=== PATIENT | female | born 1945 | race Caucasian/White ===

== ENCOUNTER 2021-07-18 06:06 | Inpatient (IN) | payer MEDICARE ==
[2021-07-18] VITALS (13 sets, daily range): BP systolic 109–150; BP diastolic 40–65
[~2021-07-18] VITALS: Ht 167.6 cm; Wt 68.5 kg
[~2021-07-18 06:06] MED LIST: ACET325T21 PO; ASPI-630 PO; ATOR80TA72 PO; CARB1TAB22 PO; CHOL500050 PO; DONE10TA7 PO; DONE23TA PO; DOXY100T PO; FLUD0.1T PO; Folic Acid PO; HYDR-2868 PO; HYDROmorphone 2 MG/ML VIAL IVP PRN; IV RINGERS,LACTATED 1000ML 1,000 ML IV SCH; LACT1CAP19 PO; MIDO5TAB4 PO; MORPHINE SULFATE 2 MG/ML INJ. IVP PRN; MULT1TAB92 PO; PARO20TA3 PO; POLY17PO29 PO; PROCHLORPERAZINE 10 MG/2 ML VIAL. IVP PRN; QUET25TA5 PO; RIVA10TA PO; SENN1TAB99 PO; THIA100T22 PO; TORS10TA3 PO; TRAM50TA PO; fentaNYL PF VIAL 100 MCG/2 ML VIAL IVP PRN
[2021-07-18] MEDS ORDERED: PROPOFOL 10 MG/ML (20ML) VIAL. IV ONE (07:00)
[2021-07-18] MEDS ORDERED: LIDOCAINE 1% PF 5 ML VIAL. ONE (07:00)
[2021-07-18] MEDS ORDERED: fentaNYL PF VIAL 100 MCG/2 ML VIAL ONE (07:01)
[2021-07-18] MEDS ORDERED: ONDANSETRON PF 4 MG/2 ML VIAL. ONE (07:01)
[2021-07-18] MEDS ORDERED: DEXAMETHASONE SOD PHOS 4 MG/ML VIAL ONE (07:01)
[2021-07-18] MEDS ORDERED: fentaNYL PF VIAL 100 MCG/2 ML VIAL IVP PRN (07:45)
[2021-07-18] MEDS ORDERED: DEXTROSE 50% 25 GM / 50ML DISP.SYRIN. IV PRN (07:45)
[2021-07-18] MEDS ORDERED: HYDROcodone/APAP 7.5/325MG 1 TAB TABLET PO PRN ×2 (07:45)
[2021-07-18] MEDS ORDERED: MORPHINE SULFATE 2 MG/ML INJ. IVP PRN (07:45)
[2021-07-18] MEDS ORDERED: ONDANSETRON PF 4 MG/2 ML VIAL. IVP PRN (07:45)
[2021-07-18] MEDS ORDERED: POLYETHYLENE GLYCOL 3350 17 GM PACKET. PO PRN (07:45)
[2021-07-18] MEDS ORDERED: GLYCOPYRROLATE 1 MG/5 ML VIAL. ONE (07:59)
[2021-07-18] MEDS: FERROUS SULFATE 325 MG TABLET. PO SCH ×2 (08:00→17:09)
[2021-07-18] MEDS ORDERED: ePHEDrine PF IN SALINE 50 MG/10 ML SYRINGE. IV ONE (08:01)
[2021-07-18] MEDS ORDERED: CLINDAMYCIN 900MG PREMIX 50 ML IV ONE (08:30)
[2021-07-18] MEDS ORDERED: SEVOFLURANE 61 TO 120 MINUTES. IH ONE (08:31)
--- NOTE | 2021-07-18 08:38 | PDOC4 ---
OPERATIVE NOTE: DATE OF PROCEDURE: July 18, 2021 PROCEDURE: Open evacuation seroma with debridement and closure POSTOPERATIVE DIAGNOSIS: Left hip seroma status post hemiarthroplasty SURGEON: Bear Faria DO WELDER FITTER GAS: None EBL: Less than 50 cc SPECIMEN: None ANESTHESIA: General POSITION: Lateral decubitus COMPLICATIONS: None. GROSS FINDINGS: 2 cm skin opening in the area of the incision with seroma type fluid with some hemosiderin staining. Cultures were taken x2 DISPOSITION: To PACU stable. IMPLANT SPECIFICATIONS: None DESCRIPTION OF PROCEDURE: Patient seen in preoperative holding area site is marked consent was verified. Patient was wheeled back the operating room laid supine on the operative table. Department of anesthesia administered general anesthetic and maintain control of the airway. Once adequately anesthetized and the airway protected the patient was positioned in the lateral decubitus position with left hip up. Sterile prep and drape performed in the usual fashion. At this point the area of the previous incision was opened with full-thickness skin flaps. Seroma was encountered and cultured. Blunt probing of the depths of the incision revealed no deep penetration of fluid. Antibiotics were given by department of anesthesia. At this point curetting and copious irrigation will run through the wound aggressively. Any fibrinous tissue was removed sharply. No abscess or purulent material was encountered. After copious irrigation a Hemovac drain was placed. Layered closure was performed using nonbraided suture and the skin was closed with isaiah. Large bulky dressing was applied. Anesthesia was reversed and patient was transferred to postop in apparent stable condition. DISPOSITION: Patient Will be transferred to postop and anticipate discharge when stable. Prognosis: Good BEAR FARIA DO Jul 18, 2021 8:38 am
[2021-07-18] MEDS: SENNOSIDES/DOCUSATE 8.6/50MG TABLET. PO SCH ×2 (09:00→11:00)
[2021-07-18] MEDS: MULTIVITAMIN with MINERAL TABLET. PO SCH ×2 (09:00→11:00)
--- NOTE | 2021-07-18 10:48 | PDOC1 ---
History and Physical Date of Admission Date of Admission DATE: 07/18/21 TIME: 10:46 Identification/Chief Complaint Chief Complaint Hip pain Source Source: Caregiver, Chart review History of Present Illness History of Present Illness Ms Nolasco is 76-year-old female with past medical history dementia, Parkinson's, HTN and recent left hip fracture who presents as an admission for left hip swelling and pain with seroma noted on left hip. She went to OR for I&D 07/18/2021 with operative cultures taken. No deep pocketing noted. She is s/p left hip hemiarthroplasty on 04/29/2021 and was discharged in stable condition for rehabilitation. No complaints of pain. Discussed working with PT. I believe she will require acute rehab again. Past Medical History Cardiovascular: HTN, Syncope CENTRAL NERVOUS SYSTEM: Dementia, Other GI: No pertinent hx Heme/Onc: No pertinent hx Hepatobiliary: No pertinent hx Psych: Anxiety, Depression Musculoskeletal: Osteoarthritis Infectious disease: No pertinent hx Renal/: Urinary Incontinence Past Surgical History Past Surgical History: Total hip replacement (Left 04/29/2021) Family History Family History: Hypertension Social History ALCOHOL: none Drugs: None Current Medications Current Medications Current Medications Fentanyl Citrate (Fentanyl 2ml Vial) 25 mcg PRN Q5MIN PRN IVP MILD PAIN 1-3; Start 07/18/21 at 06:00; Stop 07/18/21 at 20:00 Fentanyl Citrate (Fentanyl 2ml Vial) 50 mcg PRN Q5MIN PRN IVP MODERATE PAIN 4- 6; Start 07/18/21 at 06:00; Stop 07/18/21 at 20:00 Morphine Sulfate (Morphine Sulfate) 1 mg PRN Q10MIN PRN IVP SEVERE PAIN 7-10; Start 07/18/21 at 06:00; Stop 07/18/21 at 20:00 Ringer's Solution 1,000 ml @ 30 mls/hr Q24H IV Last administered on 07/18/21at 06:48; Start 07/18/21 at 06:00; Stop 07/18/21 at 17:59 Hydromorphone HCl (Dilaudid) 0.5 mg PRN Q10MIN PRN IVP SEVERE PAIN 7-10, 2nd CHOICE; Start 07/18/21 at 06:00; Stop 07/18/21 at 20:00 Prochlorperazine Edisylate (Compazine) 5 mg PACU PRN PRN IVP NAUSEA, MRX1; Start 07/18/21 at 06:00; Stop 07/18/21 at 20:00 Propofol (Diprivan) 200 mg STK-MED ONCE IV ; Start 07/18/21 at 07:00; Stop 07/18/21 at 07:00; Status DC Lidocaine HCl (Xylocaine-Mpf 1% 5ml Vial) 5 ml STK-MED ONCE .ROUTE ; Start 07/18/21 at 07:00; Stop 07/18/21 at 07:00; Status DC Fentanyl Citrate (Fentanyl 2ml Vial) 100 mcg STK-MED ONCE .ROUTE ; Start 07/18/21 at 07:01; Stop 07/18/21 at 07:01; Status DC Dexamethasone Sodium Phosphate (Decadron) 4 mg STK-MED ONCE .ROUTE ; Start 07/18/21 at 07:01; Stop 07/18/21 at 07:01; Status DC Ondansetron HCl (Zofran) 4 mg STK-MED ONCE .ROUTE ; Start 07/18/21 at 07:01; Stop 07/18/21 at 07:01; Status DC Morphine Sulfate (Morphine Sulfate) 2 mg PRN Q1HR PRN IVP SEVERE PAIN 7-10, 1ST CHOICE; Start 07/18/21 at 07:45 Fentanyl Citrate (Fentanyl 2ml Vial) 25 mcg PRN Q1HR PRN IVP SEVERE PAIN 7-10; Start 07/18/21 at 07:45 Multivitamins (Thera M Plus) 1 tab DAILY PO ; Start 07/18/21 at 09:00 Senna/Docusate Sodium (Senna Plus) 1 tab DAILY PO ; Start 07/18/21 at 09:00 Polyethylene Glycol (miraLAX PACKET) 17 gm PRN DAILY PRN PO CONSTIPATION; Start 07/18/21 at 07:45 Ferrous Sulfate (Feosol) 325 mg BIDWMEALS PO ; Start 07/18/21 at 08:00 Clindamycin Phosphate 50 ml @ 100 mls/hr Q6H IV ; Start 07/18/21 at 14:00; Stop 07/19/21 at 02:29 Ondansetron HCl (Zofran) 4 mg PRN Q4HRS PRN IVP NAUSEA/VOMITING; Start 07/18/21 at 07:45 Aspirin (Pilar Aspirin) 325 mg DAILYWBKFT PO ; Start 07/19/21 at 08:00 Magnesium Hydroxide (Milk Of Magnesia) 2,400 mg 1X PRN PRN PO CONSTIPATION; Start 07/19/21 at 06:00; Stop 07/20/21 at 05:59 Bisacodyl (Dulcolax Supp) 10 mg 1X PRN PRN MD CONSTIPATION; Start 07/19/21 at 16:00; Stop 07/20/21 at 15:59 Acetaminophen/ Hydrocodone Bitart (Lortab 7.5/325) 1 tab PRN Q4HRS PRN PO PAIN- SEE COMMENTS; Start 07/18/21 at 07:45 Acetaminophen/ Hydrocodone Bitart (Lortab 7.5/325) 2 tab PRN Q4HRS PRN PO PAIN- SEE COMMENTS; Start 07/18/21 at 07:45 Dextrose (Dextrose 50%-Water Syringe) 12.5 gm PRN Q15MIN PRN IV SEE COMMENTS; Start 07/18/21 at 07:45 Glycopyrrolate (Robinul) 1 mg STK-MED ONCE .ROUTE ; Start 07/18/21 at 07:59; Stop 07/18/21 at 07:59; Status DC Ephedrine Sulfate (ePHEDrine PF IN SALINE SYRINGE) 50 mg STK-MED ONCE IV ; Start 07/18/21 at 08:01; Stop 07/18/21 at 08:01; Status DC Clindamycin Phosphate 50 ml @ 100 mls/hr 1X ONCE IV ; Start 07/18/21 at 08:30; Stop 07/18/21 at 08:59; Status DC Sevoflurane (Ultane) 60 ml STK-MED ONCE IH ; Start 07/18/21 at 08:31; Stop 07/18/21 at 08:32; Status DC Active Scripts Active Thera-M Tablet (Multivits,Ca,Minerals/Iron/Fa) 1 Each Tablet 1 Tab PO DAILY 30 Days Tramadol Hcl 50 Mg Tablet 50 Mg PO PRN Q6HRS PRN 7 Days Vitamin B-1 (Thiamine Mononitrate) 100 Mg Tablet 100 Mg PO DAILY 30 Days Acetaminophen 325 Mg Tablet 650 Mg PO PRN Q4HRS PRN 14 Days Reported Miralax (Polyethylene Glycol 3350) 17 Gm Powd.pack 1 Pkt PO DAILY Hydralazine Hcl 25 Mg Tablet 25 Mg PO PRN QID PRN Donepezil Hcl 23 Mg Tablet 20 Mg PO HS Torsemide 10 Mg Tablet 1 Tab PO DAILY 30 Days Senna-Docusate Sodium Tablet (Sennosides/Docusate Sodium) 1 Each Tablet 1 Tab PO DAILY 20 Days Paroxetine Hcl 20 Mg Tablet 1 Tab PO DAILY Midodrine Hcl 5 Mg Tablet 5 Mg PO TID Fludrocortisone Acetate 0.1 Mg Tablet 1 Tab PO DAILY Vitamin D3 (Cholecalciferol (Vitamin D3)) 1,250 Mcg Capsule 2,000 Mcg PO DAILY Aspirin 81 Mg Tab.chew 1 Tab PO DAILY Atorvastatin Calcium 80 Mg Tablet 40 Mg PO QHS Carbidopa-Levodopa 25-100 Tab (Carbidopa/Levodopa) 1 Each Tablet 2 Tab PO TIDWMEALS 30 Days Seroquel (Quetiapine Fumarate) 25 Mg Tablet 25 Mg PO BID Allergies Allergies: Coded Allergies: Penicillins (Verified Allergy, Intermediate, 07/18/21) amoxicillin (Verified Allergy, Intermediate, 07/18/21) clavulanic acid (Verified Allergy, Intermediate, 07/18/21) ROS Review of System Unable to complete due to dementia Physical Exam General: Alert, Cooperative, No acute distress HEENT: Atraumatic, PERRLA, EOMI, Mucous membr. moist/pink Lungs: Clear to auscultation, Normal air movement Heart: S1S2, RRR, no thrills, no rubs, no gallops, no murmurs Abdomen: Normal bowel sounds, Soft, No tenderness, No hepatosplenomegaly, No masses Extremities: No clubbing, No cyanosis, No edema, Normal pulses, Other (left hip and leg swelling) Skin: No rashes, No breakdown, No significant lesion Neuro: Normal speech, Strength at 5/5 X4 ext, Normal tone, Sensation intact, Cranial nerves 3-12 NL, Reflexes 2+ Psych/Mental Status: Mental status NL, Mood NL Vitals Vitals Vital Signs Date Time Temp Pulse Resp B/P (MAP) Pulse Ox O2 Delivery O2 Flow Rate FiO2 07/18/21 09:27 98.1 92 15 125/48 96 Room Air 10 98.1 Simple Mask VTE Prophylaxis Ordered VTE Prophylaxis Devices: Yes VTE Pharmacological Prophylaxi: Yes Assessment/Plan Assessment/Plan A/P: Left hip seroma - s/p operative I&D, will cont clindamycin, f/u cultures H/o Impacted subcapital left femoral neck fracture s/p left hip hemiarthroplasty on 04/29/2021 4 mm left upper lobe nodule - f/u in 3 months Dementia - stable, progressive Parkinson's - cont sinemet HTN - cont home meds Plan: Pain management, although she is currently not complaining of pain Resume home medications Recommend follow-up on 4 mm left upper lobe nodule in 12 months PT/OT FEN - Cardiac diet PPX - Heparin FULL CODE Dispo - inpatient for above Justifications for Admission Other Justification SYNCOPE BEAR MORRISSEY MD Jul 18, 2021 10:48
[2021-07-18] MEDS ORDERED: ACETAMINOPHEN 325 MG TABLET. PO PRN (11:00)
[2021-07-18] MEDS: FLUDROCORTISONE 0.1 MG TABLET PO SCH (11:00)
[2021-07-18] MEDS: POLYETHYLENE GLYCOL 3350 17 GM PACKET. PO SCH (11:00)
[2021-07-18] MEDS ORDERED: traMADol 50 MG TABLET PO PRN (11:00)
[2021-07-18] MEDS: CHOLECALCIFEROL (VITAMIN D3) 1,000 UNIT TABLET PO SCH (11:00)
[2021-07-18] MEDS: QUEtiapine 25 MG TABLET. PO SCH ×2 (11:00→20:50)
[2021-07-18] MEDS: THIAMINE 100 MG TABLET. PO SCH (11:00)
[2021-07-18] MEDS: PARoxetine 20 MG TABLET PO SCH (11:00)
[2021-07-18] MEDS ORDERED: CALC500T31 PO (11:34)
[2021-07-18] MEDS: CARBIDOPA/LEVODOPA 25/100MG TABLET PO SCH ×2 (12:00→17:08)
[2021-07-18] MEDS: ASPIRIN CHEWABLE 81 MG TABLET. PO SCH (12:00)
[2021-07-18] MEDS: CLINDAMYCIN 900MG PREMIX 50 ML IV SCH ×2 (14:05→20:50)
[2021-07-18] MEDS: ATORVASTATIN CALCIUM 40 MG TABLET. PO SCH (20:50)
[2021-07-19] MEDS: CLINDAMYCIN 900MG PREMIX 50 ML IV SCH (02:52)
[2021-07-19 03:08] VITALS: BP 109/39
[2021-07-19] MEDS ORDERED: MAGNESIUM HYDROXIDE 2,400 MG/30 ML ORAL.SUSP. PO PRN (06:00)
[2021-07-19] MEDS: HEPARIN for SUB-Q USE 5,000 UNIT/ML VIAL. SQ SCH ×3 (06:41→22:38)
[2021-07-19 07:00] VITALS: BP 129/59
[2021-07-19] MEDS: ASPIRIN CHEWABLE 81 MG TABLET. PO SCH (07:09)
[2021-07-19] MEDS: SENNOSIDES/DOCUSATE 8.6/50MG TABLET. PO SCH ×2 (07:14→07:54)
[2021-07-19] MEDS: MULTIVITAMIN with MINERAL TABLET. PO SCH ×2 (07:15→07:55)
[2021-07-19] MEDS: CHOLECALCIFEROL (VITAMIN D3) 1,000 UNIT TABLET PO SCH (07:53)
[2021-07-19] MEDS: POLYETHYLENE GLYCOL 3350 17 GM PACKET. PO SCH (07:53)
[2021-07-19] MEDS: FLUDROCORTISONE 0.1 MG TABLET PO SCH (07:54)
[2021-07-19] MEDS: THIAMINE 100 MG TABLET. PO SCH (07:54)
[2021-07-19] MEDS: FERROUS SULFATE 325 MG TABLET. PO SCH ×2 (07:54→17:03)
[2021-07-19] MEDS: ASPIRIN 325 MG TABLET PO SCH (07:54)
[2021-07-19] MEDS: QUEtiapine 25 MG TABLET. PO SCH ×2 (07:54→20:47)
[2021-07-19] MEDS: CARBIDOPA/LEVODOPA 25/100MG TABLET PO SCH ×3 (07:55→17:03)
--- NOTE | 2021-07-19 08:39 | PDOC ---
PROGRESS NOTES Date of Service: DATE: 07/19/21 TIME: 08:38 Chief Complaint Chief Complaint impression Assessment/Plan A/P: Left hip seroma - s/p operative I&D, will cont clindamycin, f/u cultures pod # 1 H/o Impacted subcapital left femoral neck fracture s/p left hip hemiarthroplasty on 04/29/2021 4 mm left upper lobe nodule - f/u in 3 months Dementia - stable, progressive Parkinson's - cont sinemet HTN - cont home meds Plan: Pain management, although she is currently not complaining of pain Resume home medications Recommend follow-up on 4 mm left upper lobe nodule in 12 months PT/OT FEN - Cardiac diet PPX - Heparin FULL CODE Dispo - inpatient for above ID CONSULT Justifications for Admission Justifications for Admission Other Justification SYNCOPE History of Present Illness History of Present Illness History of Present Illness History of Present Illness Ms Nolasco is 76-year-old female with past medical history dementia, Parkinson's, HTN and recent left hip fracture who presents as an admission for left hip swelling and pain with seroma noted on left hip. She went to OR for I&D 07/18/2021 with operative cultures taken. No deep pocketing noted. She is s/p left hip hemiarthroplasty on 04/29/2021 and was discharged in stable condition for rehabilitation. No complaints of pain. Discussed working with PT. I believe she will require acute rehab again. Past Medical History Cardiovascular: HTN, Syncope CENTRAL NERVOUS SYSTEM: Dementia, Other GI: No pertinent hx Heme/Onc: No pertinent hx Hepatobiliary: No pertinent hx Psych: Anxiety, Depression Musculoskeletal: Osteoarthritis Infectious disease: No pertinent hx Renal/: Urinary Incontinence Past Surgical History Past Surgical History: Total hip replacement (Left 04/29/2021) Family History Family History: Hypertension Social History ALCOHOL: none Drugs: None Current Medications Current Medications Current Medications Fentanyl Citrate (Fentanyl 2ml Vial) 25 mcg PRN Q5MIN PRN IVP MILD PAIN 1-3; Start 07/18/21 at 06:00; Stop 07/18/21 at 20:00 Fentanyl Citrate (Fentanyl 2ml Vial) 50 mcg PRN Q5MIN PRN IVP MODERATE PAIN 4- 6; Start 07/18/21 at 06:00; Stop 07/18/21 at 20:00 Morphine Sulfate (Morphine Sulfate) 1 mg PRN Q10MIN PRN IVP SEVERE PAIN 7-10; Start 07/18/21 at 06:00; Stop 07/18/21 at 20:00 Ringer's Solution 1,000 ml @ 30 mls/hr Q24H IV Last administered on 07/18/21at 06:48; Start 07/18/21 at 06:00; Stop 07/18/21 at 17:59 Hydromorphone HCl (Dilaudid) 0.5 mg PRN Q10MIN PRN IVP SEVERE PAIN 7-10, 2nd CHOICE; Start 07/18/21 at 06:00; Stop 07/18/21 at 20:00 Prochlorperazine Edisylate (Compazine) 5 mg PACU PRN PRN IVP NAUSEA, MRX1; Start 07/18/21 at 06:00; Stop 07/18/21 at 20:00 Propofol (Diprivan) 200 mg STK-MED ONCE IV ; Start 07/18/21 at 07:00; Stop 07/18/21 at 07:00; Status DC Lidocaine HCl (Xylocaine-Mpf 1% 5ml Vial) 5 ml STK-MED ONCE .ROUTE ; Start 07/18/21 at 07:00; Stop 07/18/21 at 07:00; Status DC Fentanyl Citrate (Fentanyl 2ml Vial) 100 mcg STK-MED ONCE .ROUTE ; Start 07/18/21 at 07:01; Stop 07/18/21 at 07:01; Status DC Dexamethasone Sodium Phosphate (Decadron) 4 mg STK-MED ONCE .ROUTE ; Start 07/18/21 at 07:01; Stop 07/18/21 at 07:01; Status DC Ondansetron HCl (Zofran) 4 mg STK-MED ONCE .ROUTE ; Start 07/18/21 at 07:01; Stop 07/18/21 at 07:01; Status DC Morphine Sulfate (Morphine Sulfate) 2 mg PRN Q1HR PRN IVP SEVERE PAIN 7-10, 1ST CHOICE; Start 07/18/21 at 07:45 Fentanyl Citrate (Fentanyl 2ml Vial) 25 mcg PRN Q1HR PRN IVP SEVERE PAIN 7-10; Start 07/18/21 at 07:45 Multivitamins (Thera M Plus) 1 tab DAILY PO ; Start 07/18/21 at 09:00 Senna/Docusate Sodium (Senna Plus) 1 tab DAILY PO ; Start 07/18/21 at 09:00 Polyethylene Glycol (miraLAX PACKET) 17 gm PRN DAILY PRN PO CONSTIPATION; Start 07/18/21 at 07:45 Ferrous Sulfate (Feosol) 325 mg BIDWMEALS PO ; Start 07/18/21 at 08:00 Clindamycin Phosphate 50 ml @ 100 mls/hr Q6H IV ; Start 07/18/21 at 14:00; Stop 07/19/21 at 02:29 Ondansetron HCl (Zofran) 4 mg PRN Q4HRS PRN IVP NAUSEA/VOMITING; Start 07/18/21 at 07:45 Aspirin (Pilar Aspirin) 325 mg DAILYWBKFT PO ; Start 07/19/21 at 08:00 Magnesium Hydroxide (Milk Of Magnesia) 2,400 mg 1X PRN PRN PO CONSTIPATION; Start 07/19/21 at 06:00; Stop 07/20/21 at 05:59 Bisacodyl (Dulcolax Supp) 10 mg 1X PRN PRN [place] CONSTIPATION; Start 07/19/21 at 16:00; Stop 07/20/21 at 15:59 Acetaminophen/ Hydrocodone Bitart (Lortab 7.5/325) 1 tab PRN Q4HRS PRN PO PAIN- SEE COMMENTS; Start 07/18/21 at 07:45 Acetaminophen/ Hydrocodone Bitart (Lortab 7.5/325) 2 tab PRN Q4HRS PRN PO PAIN- SEE COMMENTS; Start 07/18/21 at 07:45 Dextrose (Dextrose 50%-Water Syringe) 12.5 gm PRN Q15MIN PRN IV SEE COMMENTS; Start 07/18/21 at 07:45 Glycopyrrolate (Robinul) 1 mg STK-MED ONCE .ROUTE ; Start 07/18/21 at 07:59; Stop 07/18/21 at 07:59; Status DC Ephedrine Sulfate (ePHEDrine PF IN SALINE SYRINGE) 50 mg STK-MED ONCE IV ; Start 07/18/21 at 08:01; Stop 07/18/21 at 08:01; Status DC Clindamycin Phosphate 50 ml @ 100 mls/hr 1X ONCE IV ; Start 07/18/21 at 08:30; Stop 07/18/21 at 08:59; Status DC Sevoflurane (Ultane) 60 ml STK-MED ONCE IH ; Start 07/18/21 at 08:31; Stop 07/18/21 at 08:32; Status DC Active Scripts Active Thera-M Tablet (Multivits,Ca,Minerals/Iron/Fa) 1 Each Tablet 1 Tab PO DAILY 30 Days Tramadol Hcl 50 Mg Tablet 50 Mg PO PRN Q6HRS PRN 7 Days Vitamin B-1 (Thiamine Mononitrate) 100 Mg Tablet 100 Mg PO DAILY 30 Days Acetaminophen 325 Mg Tablet 650 Mg PO PRN Q4HRS PRN 14 Days Reported Miralax (Polyethylene Glycol 3350) 17 Gm Powd.pack 1 Pkt PO DAILY Hydralazine Hcl 25 Mg Tablet 25 Mg PO PRN QID PRN Donepezil Hcl 23 Mg Tablet 20 Mg PO HS Torsemide 10 Mg Tablet 1 Tab PO DAILY 30 Days Senna-Docusate Sodium Tablet (Sennosides/Docusate Sodium) 1 Each Tablet 1 Tab PO DAILY 20 Days Paroxetine Hcl 20 Mg Tablet 1 Tab PO DAILY Midodrine Hcl 5 Mg Tablet 5 Mg PO TID Fludrocortisone Acetate 0.1 Mg Tablet 1 Tab PO DAILY Vitamin D3 (Cholecalciferol (Vitamin D3)) 1,250 Mcg Capsule 2,000 Mcg PO DAILY Aspirin 81 Mg Tab.chew 1 Tab PO DAILY Atorvastatin Calcium 80 Mg Tablet 40 Mg PO QHS Carbidopa-Levodopa 25-100 Tab (Carbidopa/Levodopa) 1 Each Tablet 2 Tab PO TIDWMEALS 30 Days Seroquel (Quetiapine Fumarate) 25 Mg Tablet 25 Mg PO BID Allergies Allergies: Coded Allergies: Penicillins (Verified Allergy, Intermediate, 07/18/21) amoxicillin (Verified Allergy, Intermediate, 07/18/21) clavulanic acid (Verified Allergy, Intermediate, 07/18/21) ROS Review of System Unable to complete due to dementia Vitals Vitals Vital Signs Date Time Temp Pulse Resp B/P (MAP) Pulse Ox O2 Delivery O2 Flow Rate FiO2 07/19/21 07:54 94 Room Air 10.0 07/19/21 07:00 98.0 78 18 129/59 (82) 98.0 Physical Exam General: Alert, Cooperative, No acute distress Lungs: Clear Abdomen: Normal bowel sounds, Soft, No tenderness, No hepatosplenomegaly, No masses Extremities: No clubbing, No cyanosis, No edema, Normal pulses, Other (left hip and leg swelling) Skin: No rashes, No breakdown, No significant lesion Labs LABS DATE OF PROCEDURE: July 18, 2021 PROCEDURE: Open evacuation seroma with debridement and closure POSTOPERATIVE DIAGNOSIS: Left hip seroma status post hemiarthroplasty SURGEON: Haider Faria DO APPLE PICKING SUPERVISOR: None EBL: Less than 50 cc SPECIMEN: None ANESTHESIA: General POSITION: Lateral decubitus COMPLICATIONS: None. GROSS FINDINGS: 2 cm skin opening in the area of the incision with seroma type fluid with some hemosiderin staining. Cultures were taken x2 DISPOSITION: To PACU stable. IMPLANT SPECIFICATIONS: None DESCRIPTION OF PROCEDURE: Patient seen in preoperative holding area site is marked consent was verified. Patient was wheeled back the operating room laid supine on the operative table. Department of anesthesia administered general anesthetic and maintain control of the airway. Once adequately anesthetized and the airway protected the patient was positioned in the lateral decubitus position with left hip up. Sterile prep and drape performed in the usual fashion. At this point the area of the previous incision was opened with full-thickness skin flaps. Seroma was encountered and cultured. Blunt probing of the depths of the incision revealed no deep penetration of fluid. Antibiotics were given by department of anesthesia. At this point curetting and copious irrigation will run through the wound aggressively. Any fibrinous tissue was removed sharply. No abscess or purulent material was encountered. After copious irrigation a Hemovac drain was placed. Layered closure was performed using nonbraided suture and the skin was closed with isaiah. Large bulky dressing was applied. Anesthesia was reversed and patient was transferred to postop in apparent stable condition. DISPOSITION: Patient Will be transferred to postop and anticipate discharge when stable. Prognosis: Good HAIDER FARIA DO Jul 18, 2021 08:38 ESC: CHIRAG STANLEY MD ORDERED: ANAER/AEROB/GS COMMENTS: SEROMA LEFT HIP -------- ---- Procedure Result GRAM STAIN Final Final NO ORGANISMS SEEN. RBC:MANY SQUAMOUS EPI CELL:NONE SEEN PMN (WBCs):NONE SEEN Unless otherwise specified, Testing Performed by: [address] [address] For Inquires, the Physician may contact the Microbiology department at [phone] ANAEROBIC-AEROBIC CULTURE Preliminary Preliminary RARE GRAM NEGATIVE RODS on 07/19/21 at 0853 FINAL ID= [ESCHERICHIA COLI] ESCHERICHIA COLI Unless otherwise specified, Testing Performed by: [address] [address] For Inquires, the Physician may contact the Microbiology department at [phone] Comment Review of Relevant I have reviewed the following items brian (where applicable) has been applied. Medications Current Medications Fentanyl Citrate (Fentanyl 2ml Vial) 25 mcg PRN Q5MIN PRN IVP MILD PAIN 1-3; Start 07/18/21 at 06:00; Stop 07/18/21 at 20:00; Status DC Fentanyl Citrate (Fentanyl 2ml Vial) 50 mcg PRN Q5MIN PRN IVP MODERATE PAIN 4- 6; Start 07/18/21 at 06:00; Stop 07/18/21 at 20:00; Status DC Morphine Sulfate (Morphine Sulfate) 1 mg PRN Q10MIN PRN IVP SEVERE PAIN 7-10; Start 07/18/21 at 06:00; Stop 07/18/21 at 20:00; Status DC Ringer's Solution 1,000 ml @ 30 mls/hr Q24H IV Last administered on 07/18/21at 06:48; Start 07/18/21 at 06:00; Stop 07/18/21 at 17:59; Status DC Hydromorphone HCl (Dilaudid) 0.5 mg PRN Q10MIN PRN IVP SEVERE PAIN 7-10, 2nd CHOICE; Start 07/18/21 at 06:00; Stop 07/18/21 at 20:00; Status DC Prochlorperazine Edisylate (Compazine) 5 mg PACU PRN PRN IVP NAUSEA, MRX1; Start 07/18/21 at 06:00; Stop 07/18/21 at 20:00; Status DC Propofol (Diprivan) 200 mg STK-MED ONCE IV ; Start 07/18/21 at 07:00; Stop 07/18/21 at 07:00; Status DC Lidocaine HCl (Xylocaine-Mpf 1% 5ml Vial) 5 ml STK-MED ONCE .ROUTE ; Start 07/18/21 at 07:00; Stop 07/18/21 at 07:00; Status DC Fentanyl Citrate (Fentanyl 2ml Vial) 100 mcg STK-MED ONCE .ROUTE ; Start 07/18/21 at 07:01; Stop 07/18/21 at 07:01; Status DC Dexamethasone Sodium Phosphate (Decadron) 4 mg STK-MED ONCE .ROUTE ; Start 07/18/21 at 07:01; Stop 07/18/21 at 07:01; Status DC Ondansetron HCl (Zofran) 4 mg STK-MED ONCE .ROUTE ; Start 07/18/21 at 07:01; Stop 07/18/21 at 07:01; Status DC Morphine Sulfate (Morphine Sulfate) 2 mg PRN Q1HR PRN IVP SEVERE PAIN 7-10, 1ST CHOICE; Start 07/18/21 at 07:45 Fentanyl Citrate (Fentanyl 2ml Vial) 25 mcg PRN Q1HR PRN IVP SEVERE PAIN 7-10; Start 07/18/21 at 07:45 Multivitamins (Thera M Plus) 1 tab DAILY PO Last administered on 07/19/21at 07:55; Start 07/18/21 at 09:00 Senna/Docusate Sodium (Senna Plus) 1 tab DAILY PO Last administered on 07/19/21at 07:54; Start 07/18/21 at 09:00 Polyethylene Glycol (miraLAX PACKET) 17 gm PRN DAILY PRN PO CONSTIPATION; Start 07/18/21 at 07:45 Ferrous Sulfate (Feosol) 325 mg BIDWMEALS PO Last administered on 07/19/21at 07:54; Start 07/18/21 at 08:00 Clindamycin Phosphate 50 ml @ 100 mls/hr Q6H IV Last administered on 07/19/21at 02:52; Start 07/18/21 at 14:00; Stop 07/19/21 at 02:29; Status DC Ondansetron HCl (Zofran) 4 mg PRN Q4HRS PRN IVP NAUSEA/VOMITING; Start 07/18/21 at 07:45 Aspirin (Pilar Aspirin) 325 mg DAILYWBKFT PO Last administered on 07/19/21at 07:54; Start 07/19/21 at 08:00 Magnesium Hydroxide (Milk Of Magnesia) 2,400 mg 1X PRN PRN PO CONSTIPATION; Start 07/19/21 at 06:00; Stop 07/20/21 at 05:59 Bisacodyl (Dulcolax Supp) 10 mg 1X PRN PRN [place] CONSTIPATION; Start 07/19/21 at 16:00; Stop 07/20/21 at 15:59 Acetaminophen/ Hydrocodone Bitart (Lortab 7.5/325) 1 tab PRN Q4HRS PRN PO PAIN- SEE COMMENTS; Start 07/18/21 at 07:45 Acetaminophen/ Hydrocodone Bitart (Lortab 7.5/325) 2 tab PRN Q4HRS PRN PO PAIN- SEE COMMENTS; Start 07/18/21 at 07:45 Dextrose (Dextrose 50%-Water Syringe) 12.5 gm PRN Q15MIN PRN IV SEE COMMENTS; Start 07/18/21 at 07:45 Glycopyrrolate (Robinul) 1 mg STK-MED ONCE .ROUTE ; Start 07/18/21 at 07:59; Stop 07/18/21 at 07:59; Status DC Ephedrine Sulfate (ePHEDrine PF IN SALINE SYRINGE) 50 mg STK-MED ONCE IV ; Start 07/18/21 at 08:01; Stop 07/18/21 at 08:01; Status DC Clindamycin Phosphate 50 ml @ 100 mls/hr 1X ONCE IV ; Start 07/18/21 at 08:30; Stop 07/18/21 at 08:59; Status DC Sevoflurane (Ultane) 60 ml STK-MED ONCE IH ; Start 07/18/21 at 08:31; Stop 07/18/21 at 08:32; Status DC Acetaminophen (Tylenol) 650 mg PRN Q4HRS PRN PO TEMP OVER 100.4F OR MILD PAIN; Start 07/18/21 at 11:00 Aspirin (Aspirin Chewable) 81 mg DAILY PO ; Start 07/18/21 at 12:00; Stop 07/19/21 at 07:22; Status DC Carbidopa/Levodopa (Sinemet 25/100) 2 tab TIDWMEALS PO Last administered on 07/19/21at 07:55; Start 07/18/21 at 12:00 Fludrocortisone Acetate (Florinef) 0.1 mg DAILY PO Last administered on 07/19/21at 07:54; Start 07/18/21 at 11:00 Multivitamins (Thera M Plus) 1 tab DAILY PO ; Start 07/18/21 at 11:00; Stop 07/19/21 at 07:22; Status DC Paroxetine HCl (Paxil) 20 mg DAILY PO ; Start 07/18/21 at 11:00 Polyethylene Glycol (miraLAX PACKET) 17 gm DAILY PO Last administered on 07/19/21at 07:53; Start 07/18/21 at 11:00 Quetiapine Fumarate (SEROquel) 25 mg BID PO Last administered on 07/19/21at 07:54; Start 07/18/21 at 11:00 Senna/Docusate Sodium (Senna Plus) 1 tab DAILY PO ; Start 07/18/21 at 11:00; Stop 07/19/21 at 07:22; Status DC Thiamine Mononitrate (Vitamin B-1) 100 mg DAILY PO Last administered on 07/19/21at 07:54; Start 07/18/21 at 11:00 Tramadol HCl (Ultram) 50 mg PRN Q6HRS PRN PO MILD PAIN 1-3 Last administered on 07/19/21at 07:54; Start 07/18/21 at 11:00 Atorvastatin Calcium (Lipitor) 40 mg QHS PO Last administered on 07/18/21at 20:50; Start 07/18/21 at 21:00 Vitamin D (Vitamin D3) 2,000 unit DAILY PO Last administered on 07/19/21at 07:53; Start 07/18/21 at 11:00 Clindamycin HCl (Cleocin) 300 mg TID PO ; Start 07/19/21 at 09:00 Heparin Sodium (Porcine) (Heparin Sodium) 5,000 unit Q8HRS SQ Last administered on 07/19/21at 06:41; Start 07/19/21 at 06:15 Active Scripts Active Thera-M Tablet (Multivits,Ca,Minerals/Iron/Fa) 1 Each Tablet 1 Tab PO DAILY 30 Days Tramadol Hcl 50 Mg Tablet 50 Mg PO PRN Q6HRS PRN 7 Days Acetaminophen 325 Mg Tablet 650 Mg PO PRN Q4HRS PRN 14 Days Reported Calcium Carbonate 500 Mg Tablet 1 Tab PO PRN DAILY 30 Days Miralax (Polyethylene Glycol 3350) 17 Gm Powd.pack 1 Pkt PO DAILY Hydralazine Hcl 25 Mg Tablet 25 Mg PO PRN QID PRN Donepezil Hcl 23 Mg Tablet 20 Mg PO HS Torsemide 10 Mg Tablet 1 Tab PO DAILY 30 Days Senna-Docusate Sodium Tablet (Sennosides/Docusate Sodium) 1 Each Tablet 1 Tab PO DAILY 20 Days Paroxetine Hcl 20 Mg Tablet 1 Tab PO DAILY Midodrine Hcl 5 Mg Tablet 5 Mg PO TID Fludrocortisone Acetate 0.1 Mg Tablet 1 Tab PO DAILY Vitamin D3 (Cholecalciferol (Vitamin D3)) 1,250 Mcg Capsule 2,000 Mcg PO DAILY Aspirin 81 Mg Tab.chew 1 Tab PO DAILY Atorvastatin Calcium 80 Mg Tablet 40 Mg PO QHS Carbidopa-Levodopa 25-100 Tab (Carbidopa/Levodopa) 1 Each Tablet 2 Tab PO TIDWMEALS 30 Days Seroquel (Quetiapine Fumarate) 25 Mg Tablet 25 Mg PO BID Vitals/I & O Vital Sign - Last 24 Hours 07/18/21 07/18/21 07/18/21 07/18/21 08:42 08:42 08:57 09:12 Temp 98.1 98.1 98.1 98.1 98.1 98.1 Pulse 95 95 94 Resp 15 15 15 B/P (MAP) 130/53 123/40 125/45 Pulse Ox 100 96 96 O2 Delivery Room Air Room Air Room Air Room Air Simple Mask Simple Mask Simple Mask O2 Flow Rate 10 10 10 07/18/21 07/18/21 07/18/21 07/18/21 09:27 09:40 09:55 10:10 Temp 98.1 98.1 Pulse 92 98 90 87 Resp 15 18 18 18 B/P (MAP) 125/48 136/61 (86) 132/61 (84) 128/55 (79) Pulse Ox 96 93 93 93 O2 Delivery Room Air Room Air Room Air Room Air Simple Mask O2 Flow Rate 10 07/18/21 07/18/21 07/18/21 07/18/21 10:25 10:40 11:10 11:40 Pulse 86 84 81 80 Resp 18 18 18 18 B/P (MAP) 126/46 (72) 135/57 (83) 125/52 (76) 127/51 (76) Pulse Ox 92 93 93 93 O2 Delivery Room Air Room Air Room Air Room Air 07/18/21 07/18/21 07/18/21 07/18/21 12:40 13:40 13:50 15:00 Temp 98.0 98.0 Pulse 80 81 87 Resp 18 18 18 B/P (MAP) 124/49 (74) 123/48 (73) 139/52 (81) Pulse Ox 93 93 93 O2 Delivery Room Air Room Air Room Air Room Air 07/18/21 07/18/21 07/18/21 07/19/21 19:20 20:00 23:12 03:08 Temp 97.4 97.6 98.2 97.4 97.6 98.2 Pulse 81 75 71 Resp 20 18 18 B/P (MAP) 150/52 (84) 109/40 (63) 109/39 (62) Pulse Ox 94 92 94 O2 Delivery Room Air Room Air Room Air Room Air 07/19/21 07/19/21 07:00 07:54 Temp 98.0 98.0 Pulse 78 Resp 18 B/P (MAP) 129/59 (82) Pulse Ox 93 94 O2 Delivery Room Air Room Air O2 Flow Rate 10.0 l Intake and Output 07/18/21 07/18/21 07/19/21 15:00 23:00 07:00 Intake Total 850 ml 220 ml 200 ml Balance 850 ml 220 ml 200 ml Justicifation of Admission Dx: Justifications for Admission: Justification of Admission Dx: Yes CHF: Cardiac Arrhythmias KATHY TRAN MD Jul 19, 2021 08:39
[2021-07-19 09:20] LABS: HEMATOCRIT 30.2 % (36.0-47.0)
[2021-07-19] MEDS: PARoxetine 20 MG TABLET PO SCH (09:51)
[2021-07-19] MEDS: CLINDAMYCIN HCL 150 MG CAPSULE. PO SCH ×3 (09:51→20:47)
[2021-07-19 09:52] LABS: ALBUMIN 1.9 g/dL (3.4-5.0); ALBUMIN/GLOBULIN RATIO 0.5 (1.0-1.7); CALCIUM 7.9 mg/dL (8.5-10.1); GFR 53.6; POTASSIUM 3.2 mmol/L (3.5-5.1); TOTAL BILIRUBIN 0.2 mg/dL (0.2-1.0); TOTAL PROTEIN 5.4 g/dL (6.4-8.2)
[2021-07-19 11:00] VITALS: BP 103/37
[2021-07-19] MEDS ORDERED: POTASSIUM CHLORIDE 20 MEQ TABLET.ER. PO ONE (11:15)
[2021-07-19] MEDS: LACTOBACILLUS RHAMNOSUS GG 1 CAPSULE. PO SCH ×2 (12:09→20:48)
[2021-07-19 15:00] VITALS: BP 100/39
[2021-07-19] MEDS ORDERED: BISACODYL 10 MG SUPP.RECT. PR PRN (16:00)
[2021-07-19 19:00] VITALS: BP 106/33
--- NOTE | 2021-07-19 19:29 | PDOC ---
Provider Note Date of Service: DATE: 07/19/21 TIME: 19:29 Provider Note DATE: 07/19/21 Patient seen in postoperative evaluation. She is doing fairly well. Dressing is clean dry and intact. Vital signs are stable patient is afebrile. Left hip dressing is clean dry and intact. Neurocirculatory status is intact. ASSESSMENT & PLAN: Status post left hip incision and evacuation of seroma outside the joint space Cultures revealed findings concerning for secondary E. coli infection in the soft tissues. Infectious disease consultation is pending. We will await their input to help determine patient's disposition. Justifications for Admission Other Justification SYNCOPE BEAR BRAY DO Jul 19, 2021 7:29 pm
[2021-07-19] MEDS: ATORVASTATIN CALCIUM 40 MG TABLET. PO SCH (20:47)
[2021-07-19 23:00] VITALS: BP 115/43
[2021-07-20 03:00] VITALS: BP 132/52
[2021-07-20] MEDS: HEPARIN for SUB-Q USE 5,000 UNIT/ML VIAL. SQ SCH ×3 (06:35→22:48)
[2021-07-20 07:35] LABS: BASO % 1 % (0-3); EOS # 0.2 x10^3/uL (0.0-0.7); EOS % 3 % (0-3); HEMATOCRIT 30.9 % (36.0-47.0); HEMOGLOBIN 10.1 g/dL (12.0-15.5); LYMPH # 1.7 x10^3/uL (1.0-4.8); LYMPH % 22 % (24-48); MEAN CORPUSCULAR HEMOGLOBIN 30 pg (25-35); MEAN CORPUSCULAR HGB CONC 33 g/dL (31-37); MEAN CORPUSCULAR VOLUME 92 fL (79-100); MONO # 0.6 x10^3/uL (0.0-1.1); MONO % 8 % (0-9); NEUT % 66 % (31-73); PLATELET COUNT 390 x10^3/uL (140-400); RED BLOOD COUNT 3.36 x10^6/uL (3.50-5.40); RED CELL DISTRIBUTION WIDTH 14.7 % (11.5-14.5); WHITE BLOOD COUNT 7.6 x10^3/uL (4.0-11.0)
[2021-07-20 07:44] LABS: CALCIUM 7.7 mg/dL (8.5-10.1); CREATININE 0.9 mg/dL (0.6-1.0); GFR 60.6; POTASSIUM 3.4 mmol/L (3.5-5.1)
[2021-07-20 07:45] VITALS: BP 153/59
[2021-07-20] MEDS: MULTIVITAMIN with MINERAL TABLET. PO SCH (08:33)
[2021-07-20] MEDS: POLYETHYLENE GLYCOL 3350 17 GM PACKET. PO SCH (08:33)
[2021-07-20] MEDS: THIAMINE 100 MG TABLET. PO SCH (08:33)
[2021-07-20] MEDS: LACTOBACILLUS RHAMNOSUS GG 1 CAPSULE. PO SCH ×2 (08:33→20:20)
[2021-07-20] MEDS: CLINDAMYCIN HCL 150 MG CAPSULE. PO SCH ×2 (08:33→13:57)
[2021-07-20] MEDS: SENNOSIDES/DOCUSATE 8.6/50MG TABLET. PO SCH (08:34)
[2021-07-20] MEDS: FERROUS SULFATE 325 MG TABLET. PO SCH ×2 (08:34→16:50)
[2021-07-20] MEDS: CHOLECALCIFEROL (VITAMIN D3) 1,000 UNIT TABLET PO SCH (08:34)
[2021-07-20] MEDS: QUEtiapine 25 MG TABLET. PO SCH ×2 (08:34→20:19)
[2021-07-20] MEDS: ASPIRIN 325 MG TABLET PO SCH (08:34)
[2021-07-20] MEDS: CARBIDOPA/LEVODOPA 25/100MG TABLET PO SCH ×3 (08:34→16:50)
[2021-07-20] MEDS: POTASSIUM CHLORIDE 20 MEQ TABLET.ER. PO SCH (08:34)
[2021-07-20] MEDS: PARoxetine 20 MG TABLET PO SCH (08:34)
[2021-07-20] MEDS: FLUDROCORTISONE 0.1 MG TABLET PO SCH (08:34)
--- NOTE | 2021-07-20 10:03 | PDOC ---
PROGRESS NOTES Date of Service: DATE: 07/20/21 TIME: 10:03 Chief Complaint Chief Complaint impression Assessment/Plan A/P: Left hip seroma - s/p operative I&D, will cont clindamycin, f/u cultures pod # 1 H/o Impacted subcapital left femoral neck fracture s/p left hip hemiarthroplasty on 04/29/2021 4 mm left upper lobe nodule - f/u in 3 months Dementia - stable, progressive Parkinson's - cont sinemet HTN - cont home meds Plan: Pain management, although she is currently not complaining of pain Resume home medications Recommend follow-up on 4 mm left upper lobe nodule in 12 months PT/OT FEN - Cardiac diet PPX - Heparin FULL CODE Dispo - inpatient for above ID CONSULT 07-20 Cultures revealed findings concerning for secondary E. coli infection in the soft tissues.on iv rocephin D/W RN Justifications for Admission Justifications for Admission Other Justification SYNCOPE History of Present Illness History of Present Illness History of Present Illness History of Present Illness Ms Nolasco is 76-year-old female with past medical history dementia, Parkinson's, HTN and recent left hip fracture who presents as an admission for left hip swelling and pain with seroma noted on left hip. She went to OR for I&D 07/18/2021 with operative cultures taken. No deep pocketing noted. She is s/p left hip hemiarthroplasty on 04/29/2021 and was discharged in stable condition for rehabilitation. No complaints of pain. Discussed working with PT. I believe she will require acute rehab again. Past Medical History Cardiovascular: HTN, Syncope CENTRAL NERVOUS SYSTEM: Dementia, Other GI: No pertinent hx Heme/Onc: No pertinent hx Hepatobiliary: No pertinent hx Psych: Anxiety, Depression Musculoskeletal: Osteoarthritis Infectious disease: No pertinent hx Renal/: Urinary Incontinence Past Surgical History Past Surgical History: Total hip replacement (Left 04/29/2021) Family History Family History: Hypertension Social History ALCOHOL: none Drugs: None Current Medications Current Medications Current Medications Fentanyl Citrate (Fentanyl 2ml Vial) 25 mcg PRN Q5MIN PRN IVP MILD PAIN 1-3; Start 07/18/21 at 06:00; Stop 07/18/21 at 20:00 Fentanyl Citrate (Fentanyl 2ml Vial) 50 mcg PRN Q5MIN PRN IVP MODERATE PAIN 4- 6; Start 07/18/21 at 06:00; Stop 07/18/21 at 20:00 Morphine Sulfate (Morphine Sulfate) 1 mg PRN Q10MIN PRN IVP SEVERE PAIN 7-10; Start 07/18/21 at 06:00; Stop 07/18/21 at 20:00 Ringer's Solution 1,000 ml @ 30 mls/hr Q24H IV Last administered on 07/18/21at 06:48; Start 07/18/21 at 06:00; Stop 07/18/21 at 17:59 Hydromorphone HCl (Dilaudid) 0.5 mg PRN Q10MIN PRN IVP SEVERE PAIN 7-10, 2nd CHOICE; Start 07/18/21 at 06:00; Stop 07/18/21 at 20:00 Prochlorperazine Edisylate (Compazine) 5 mg PACU PRN PRN IVP NAUSEA, MRX1; Start 07/18/21 at 06:00; Stop 07/18/21 at 20:00 Propofol (Diprivan) 200 mg STK-MED ONCE IV ; Start 07/18/21 at 07:00; Stop 07/18/21 at 07:00; Status DC Lidocaine HCl (Xylocaine-Mpf 1% 5ml Vial) 5 ml STK-MED ONCE .ROUTE ; Start 07/18/21 at 07:00; Stop 07/18/21 at 07:00; Status DC Fentanyl Citrate (Fentanyl 2ml Vial) 100 mcg STK-MED ONCE .ROUTE ; Start 07/18/21 at 07:01; Stop 07/18/21 at 07:01; Status DC Dexamethasone Sodium Phosphate (Decadron) 4 mg STK-MED ONCE .ROUTE ; Start 07/18/21 at 07:01; Stop 07/18/21 at 07:01; Status DC Ondansetron HCl (Zofran) 4 mg STK-MED ONCE .ROUTE ; Start 07/18/21 at 07:01; Stop 07/18/21 at 07:01; Status DC Morphine Sulfate (Morphine Sulfate) 2 mg PRN Q1HR PRN IVP SEVERE PAIN 7-10, 1ST CHOICE; Start 07/18/21 at 07:45 Fentanyl Citrate (Fentanyl 2ml Vial) 25 mcg PRN Q1HR PRN IVP SEVERE PAIN 7-10; Start 07/18/21 at 07:45 Multivitamins (Thera M Plus) 1 tab DAILY PO ; Start 07/18/21 at 09:00 Senna/Docusate Sodium (Senna Plus) 1 tab DAILY PO ; Start 07/18/21 at 09:00 Polyethylene Glycol (miraLAX PACKET) 17 gm PRN DAILY PRN PO CONSTIPATION; Start 07/18/21 at 07:45 Ferrous Sulfate (Feosol) 325 mg BIDWMEALS PO ; Start 07/18/21 at 08:00 Clindamycin Phosphate 50 ml @ 100 mls/hr Q6H IV ; Start 07/18/21 at 14:00; Stop 07/19/21 at 02:29 Ondansetron HCl (Zofran) 4 mg PRN Q4HRS PRN IVP NAUSEA/VOMITING; Start 07/18/21 at 07:45 Aspirin (Pilar Aspirin) 325 mg DAILYWBKFT PO ; Start 07/19/21 at 08:00 Magnesium Hydroxide (Milk Of Magnesia) 2,400 mg 1X PRN PRN PO CONSTIPATION; Start 07/19/21 at 06:00; Stop 07/20/21 at 05:59 Bisacodyl (Dulcolax Supp) 10 mg 1X PRN PRN [place] CONSTIPATION; Start 07/19/21 at 16:00; Stop 07/20/21 at 15:59 Acetaminophen/ Hydrocodone Bitart (Lortab 7.5/325) 1 tab PRN Q4HRS PRN PO PAIN- SEE COMMENTS; Start 07/18/21 at 07:45 Acetaminophen/ Hydrocodone Bitart (Lortab 7.5/325) 2 tab PRN Q4HRS PRN PO PAIN- SEE COMMENTS; Start 07/18/21 at 07:45 Dextrose (Dextrose 50%-Water Syringe) 12.5 gm PRN Q15MIN PRN IV SEE COMMENTS; Start 07/18/21 at 07:45 Glycopyrrolate (Robinul) 1 mg STK-MED ONCE .ROUTE ; Start 07/18/21 at 07:59; Stop 07/18/21 at 07:59; Status DC Ephedrine Sulfate (ePHEDrine PF IN SALINE SYRINGE) 50 mg STK-MED ONCE IV ; Start 07/18/21 at 08:01; Stop 07/18/21 at 08:01; Status DC Clindamycin Phosphate 50 ml @ 100 mls/hr 1X ONCE IV ; Start 07/18/21 at 08:30; Stop 07/18/21 at 08:59; Status DC Sevoflurane (Ultane) 60 ml STK-MED ONCE IH ; Start 07/18/21 at 08:31; Stop 07/18/21 at 08:32; Status DC Active Scripts Active Thera-M Tablet (Multivits,Ca,Minerals/Iron/Fa) 1 Each Tablet 1 Tab PO DAILY 30 Days Tramadol Hcl 50 Mg Tablet 50 Mg PO PRN Q6HRS PRN 7 Days Vitamin B-1 (Thiamine Mononitrate) 100 Mg Tablet 100 Mg PO DAILY 30 Days Acetaminophen 325 Mg Tablet 650 Mg PO PRN Q4HRS PRN 14 Days Reported Miralax (Polyethylene Glycol 3350) 17 Gm Powd.pack 1 Pkt PO DAILY Hydralazine Hcl 25 Mg Tablet 25 Mg PO PRN QID PRN Donepezil Hcl 23 Mg Tablet 20 Mg PO HS Torsemide 10 Mg Tablet 1 Tab PO DAILY 30 Days Senna-Docusate Sodium Tablet (Sennosides/Docusate Sodium) 1 Each Tablet 1 Tab PO DAILY 20 Days Paroxetine Hcl 20 Mg Tablet 1 Tab PO DAILY Midodrine Hcl 5 Mg Tablet 5 Mg PO TID Fludrocortisone Acetate 0.1 Mg Tablet 1 Tab PO DAILY Vitamin D3 (Cholecalciferol (Vitamin D3)) 1,250 Mcg Capsule 2,000 Mcg PO DAILY Aspirin 81 Mg Tab.chew 1 Tab PO DAILY Atorvastatin Calcium 80 Mg Tablet 40 Mg PO QHS Carbidopa-Levodopa 25-100 Tab (Carbidopa/Levodopa) 1 Each Tablet 2 Tab PO TIDWMEALS 30 Days Seroquel (Quetiapine Fumarate) 25 Mg Tablet 25 Mg PO BID Allergies Allergies: Coded Allergies: Penicillins (Verified Allergy, Intermediate, 07/18/21) amoxicillin (Verified Allergy, Intermediate, 07/18/21) clavulanic acid (Verified Allergy, Intermediate, 07/18/21) ROS Review of System Unable to complete due to dementia Vitals Vitals Vital Signs Date Time Temp Pulse Resp B/P (MAP) Pulse Ox O2 Delivery O2 Flow Rate FiO2 07/20/21 08:00 Room Air 10.0 07/20/21 07:45 98.4 60 18 153/59 (90) 90 98.4 Physical Exam General: Alert, Cooperative, No acute distress Lungs: Clear Abdomen: Normal bowel sounds, Soft, No tenderness, No hepatosplenomegaly, No m asses Extremities: No clubbing, No cyanosis, No edema, Normal pulses, Other (left hip and leg swelling) Skin: No rashes, No breakdown, No significant lesion Labs LABS Laboratory Tests Test 07/19/21 12:05 07/20/21 07:14 Lactic Acid Level 1.4 mmol/L (0.4-2.0) White Blood Count 7.6 x10^3/uL (4.0-11.0) Red Blood Count 3.36 x10^6/uL (3.50-5.40) Hemoglobin 10.1 g/dL (12.0-15.5) Hematocrit 30.9 % (36.0-47.0) Mean Corpuscular Volume 92 fL (79-100) Mean Corpuscular Hemoglobin 30 pg (25-35) Mean Corpuscular Hemoglobin Concent 33 g/dL (31-37) Red Cell Distribution Width 14.7 % (11.5-14.5) Platelet Count 390 x10^3/uL (140-400) Neutrophils (%) (Auto) 66 % (31-73) Lymphocytes (%) (Auto) 22 % (24-48) Monocytes (%) (Auto) 8 % (0-9) Eosinophils (%) (Auto) 3 % (0-3) Basophils (%) (Auto) 1 % (0-3) Neutrophils # (Auto) 5.0 x10^3/uL (1.8-7.7) Lymphocytes # (Auto) 1.7 x10^3/uL (1.0-4.8) Monocytes # (Auto) 0.6 x10^3/uL (0.0-1.1) Eosinophils # (Auto) 0.2 x10^3/uL (0.0-0.7) Basophils # (Auto) 0.0 x10^3/uL (0.0-0.2) Sodium Level 140 mmol/L (136-145) Potassium Level 3.4 mmol/L (3.5-5.1) Chloride Level 104 mmol/L (98-107) Carbon Dioxide Level 34 mmol/L (21-32) Anion Gap 2 (6-14) Blood Urea Nitrogen 12 mg/dL (7-20) Creatinine 0.9 mg/dL (0.6-1.0) Estimated GFR (Cockcroft-Gault) 60.6 Glucose Level 77 mg/dL (70-99) Calcium Level 7.7 mg/dL (8.5-10.1) Comment Review of Relevant I have reviewed the following items brian (where applicable) has been applied. Labs Laboratory Tests Test 07/19/21 06:45 07/19/21 12:05 07/20/21 07:14 Hemoglobin 10.0 g/dL (12.0-15.5) 10.1 g/dL (12.0-15.5) Hematocrit 30.2 % (36.0-47.0) 30.9 % (36.0-47.0) Mean Corpuscular Hemoglobin Concent 33 g/dL (31-37) 33 g/dL (31-37) Sodium Level 137 mmol/L (136-145) 140 mmol/L (136-145) Potassium Level 3.2 mmol/L (3.5-5.1) 3.4 mmol/L (3.5-5.1) Chloride Level 100 mmol/L (98-107) 104 mmol/L (98-107) Carbon Dioxide Level 33 mmol/L (21-32) 34 mmol/L (21-32) Anion Gap 4 (6-14) 2 (6-14) Blood Urea Nitrogen 12 mg/dL (7-20) 12 mg/dL (7-20) Creatinine 1.0 mg/dL (0.6-1.0) 0.9 mg/dL (0.6-1.0) Estimated GFR (Cockcroft-Gault) 53.6 60.6 BUN/Creatinine Ratio 12 (6-20) Glucose Level 74 mg/dL (70-99) 77 mg/dL (70-99) Calcium Level 7.9 mg/dL (8.5-10.1) 7.7 mg/dL (8.5-10.1) Total Bilirubin 0.2 mg/dL (0.2-1.0) Aspartate Amino Transf (AST/SGOT) 36 U/L (15-37) Alanine Aminotransferase (ALT/SGPT) 16 U/L (14-59) Alkaline Phosphatase 133 U/L (46-116) C-Reactive Protein, Quantitative 8.4 mg/L (0-3.3) Total Protein 5.4 g/dL (6.4-8.2) Albumin 1.9 g/dL (3.4-5.0) Albumin/Globulin Ratio 0.5 (1.0-1.7) Procalcitonin < 0.10 ng/mL (0.00-0.10) Lactic Acid Level 1.4 mmol/L (0.4-2.0) White Blood Count 7.6 x10^3/uL (4.0-11.0) Red Blood Count 3.36 x10^6/uL (3.50-5.40) Mean Corpuscular Volume 92 fL (79-100) Mean Corpuscular Hemoglobin 30 pg (25-35) Red Cell Distribution Width 14.7 % (11.5-14.5) Platelet Count 390 x10^3/uL (140-400) Neutrophils (%) (Auto) 66 % (31-73) Lymphocytes (%) (Auto) 22 % (24-48) Monocytes (%) (Auto) 8 % (0-9) Eosinophils (%) (Auto) 3 % (0-3) Basophils (%) (Auto) 1 % (0-3) Neutrophils # (Auto) 5.0 x10^3/uL (1.8-7.7) Lymphocytes # (Auto) 1.7 x10^3/uL (1.0-4.8) Monocytes # (Auto) 0.6 x10^3/uL (0.0-1.1) Eosinophils # (Auto) 0.2 x10^3/uL (0.0-0.7) Basophils # (Auto) 0.0 x10^3/uL (0.0-0.2) Laboratory Tests Test 07/19/21 12:05 07/20/21 07:14 Lactic Acid Level 1.4 mmol/L (0.4-2.0) White Blood Count 7.6 x10^3/uL (4.0-11.0) Red Blood Count 3.36 x10^6/uL (3.50-5.40) Hemoglobin 10.1 g/dL (12.0-15.5) Hematocrit 30.9 % (36.0-47.0) Mean Corpuscular Volume 92 fL (79-100) Mean Corpuscular Hemoglobin 30 pg (25-35) Mean Corpuscular Hemoglobin Concent 33 g/dL (31-37) Red Cell Distribution Width 14.7 % (11.5-14.5) Platelet Count 390 x10^3/uL (140-400) Neutrophils (%) (Auto) 66 % (31-73) Lymphocytes (%) (Auto) 22 % (24-48) Monocytes (%) (Auto) 8 % (0-9) Eosinophils (%) (Auto) 3 % (0-3) Basophils (%) (Auto) 1 % (0-3) Neutrophils # (Auto) 5.0 x10^3/uL (1.8-7.7) Lymphocytes # (Auto) 1.7 x10^3/uL (1.0-4.8) Monocytes # (Auto) 0.6 x10^3/uL (0.0-1.1) Eosinophils # (Auto) 0.2 x10^3/uL (0.0-0.7) Basophils # (Auto) 0.0 x10^3/uL (0.0-0.2) Sodium Level 140 mmol/L (136-145) Potassium Level 3.4 mmol/L (3.5-5.1) Chloride Level 104 mmol/L (98-107) Carbon Dioxide Level 34 mmol/L (21-32) Anion Gap 2 (6-14) Blood Urea Nitrogen 12 mg/dL (7-20) Creatinine 0.9 mg/dL (0.6-1.0) Estimated GFR (Cockcroft-Gault) 60.6 Glucose Level 77 mg/dL (70-99) Calcium Level 7.7 mg/dL (8.5-10.1) Microbiology 07/18/21 AFB Specimen Processing Tissue - Final, Resulted 07/18/21 Acid Fast Bacilli Culture, Resulted Pending 07/18/21 Gram Stain - Final, Resulted 07/18/21 Fungal Culture, Resulted Pending 07/18/21 Fungal Culture Result 1, Resulted Pending Medications Current Medications Fentanyl Citrate (Fentanyl 2ml Vial) 25 mcg PRN Q5MIN PRN IVP MILD PAIN 1-3; Start 07/18/21 at 06:00; Stop 07/18/21 at 20:00; Status DC Fentanyl Citrate (Fentanyl 2ml Vial) 50 mcg PRN Q5MIN PRN IVP MODERATE PAIN 4- 6; Start 07/18/21 at 06:00; Stop 07/18/21 at 20:00; Status DC Morphine Sulfate (Morphine Sulfate) 1 mg PRN Q10MIN PRN IVP SEVERE PAIN 7-10; Start 07/18/21 at 06:00; Stop 07/18/21 at 20:00; Status DC Ringer's Solution 1,000 ml @ 30 mls/hr Q24H IV Last administered on 07/18/21at 06:48; Start 07/18/21 at 06:00; Stop 07/18/21 at 17:59; Status DC Hydromorphone HCl (Dilaudid) 0.5 mg PRN Q10MIN PRN IVP SEVERE PAIN 7-10, 2nd CHOICE; Start 07/18/21 at 06:00; Stop 07/18/21 at 20:00; Status DC Prochlorperazine Edisylate (Compazine) 5 mg PACU PRN PRN IVP NAUSEA, MRX1; Start 07/18/21 at 06:00; Stop 07/18/21 at 20:00; Status DC Propofol (Diprivan) 200 mg STK-MED ONCE IV ; Start 07/18/21 at 07:00; Stop 07/18/21 at 07:00; Status DC Lidocaine HCl (Xylocaine-Mpf 1% 5ml Vial) 5 ml STK-MED ONCE .ROUTE ; Start 07/18/21 at 07:00; Stop 07/18/21 at 07:00; Status DC Fentanyl Citrate (Fentanyl 2ml Vial) 100 mcg STK-MED ONCE .ROUTE ; Start 07/18/21 at 07:01; Stop 07/18/21 at 07:01; Status DC Dexamethasone Sodium Phosphate (Decadron) 4 mg STK-MED ONCE .ROUTE ; Start 07/18/21 at 07:01; Stop 07/18/21 at 07:01; Status DC Ondansetron HCl (Zofran) 4 mg STK-MED ONCE .ROUTE ; Start 07/18/21 at 07:01; Stop 07/18/21 at 07:01; Status DC Morphine Sulfate (Morphine Sulfate) 2 mg PRN Q1HR PRN IVP SEVERE PAIN 7-10, 1ST CHOICE; Start 07/18/21 at 07:45 Fentanyl Citrate (Fentanyl 2ml Vial) 25 mcg PRN Q1HR PRN IVP SEVERE PAIN 7-10; Start 07/18/21 at 07:45 Multivitamins (Thera M Plus) 1 tab DAILY PO Last administered on 07/20/21at 08:33; Start 07/18/21 at 09:00 Senna/Docusate Sodium (Senna Plus) 1 tab DAILY PO Last administered on 07/20/21at 08:34; Start 07/18/21 at 09:00 Polyethylene Glycol (miraLAX PACKET) 17 gm PRN DAILY PRN PO CONSTIPATION; Start 07/18/21 at 07:45 Ferrous Sulfate (Feosol) 325 mg BIDWMEALS PO Last administered on 07/20/21at 08:34; Start 07/18/21 at 08:00 Clindamycin Phosphate 50 ml @ 100 mls/hr Q6H IV Last administered on 07/19/21at 02:52; Start 07/18/21 at 14:00; Stop 07/19/21 at 02:29; Status DC Ondansetron HCl (Zofran) 4 mg PRN Q4HRS PRN IVP NAUSEA/VOMITING; Start 07/18/21 at 07:45 Aspirin (Pilar Aspirin) 325 mg DAILYWBKFT PO Last administered on 07/20/21at 08:34; Start 07/19/21 at 08:00 Magnesium Hydroxide (Milk Of Magnesia) 2,400 mg 1X PRN PRN PO CONSTIPATION; Start 07/19/21 at 06:00; Stop 07/20/21 at 05:59; Status DC Bisacodyl (Dulcolax Supp) 10 mg 1X PRN PRN [place] CONSTIPATION; Start 07/19/21 at 16:00; Stop 07/20/21 at 15:59 Acetaminophen/ Hydrocodone Bitart (Lortab 7.5/325) 1 tab PRN Q4HRS PRN PO PAIN- SEE COMMENTS; Start 07/18/21 at 07:45 Acetaminophen/ Hydrocodone Bitart (Lortab 7.5/325) 2 tab PRN Q4HRS PRN PO PAIN- SEE COMMENTS; Start 07/18/21 at 07:45 Dextrose (Dextrose 50%-Water Syringe) 12.5 gm PRN Q15MIN PRN IV SEE COMMENTS; Start 07/18/21 at 07:45 Glycopyrrolate (Robinul) 1 mg STK-MED ONCE .ROUTE ; Start 07/18/21 at 07:59; Stop 07/18/21 at 07:59; Status DC Ephedrine Sulfate (ePHEDrine PF IN SALINE SYRINGE) 50 mg STK-MED ONCE IV ; Start 07/18/21 at 08:01; Stop 07/18/21 at 08:01; Status DC Clindamycin Phosphate 50 ml @ 100 mls/hr 1X ONCE IV ; Start 07/18/21 at 08:30; Stop 07/18/21 at 08:59; Status DC Sevoflurane (Ultane) 60 ml STK-MED ONCE IH ; Start 07/18/21 at 08:31; Stop 07/18/21 at 08:32; Status DC Acetaminophen (Tylenol) 650 mg PRN Q4HRS PRN PO TEMP OVER 100.4F; Start 07/18/21 at 11:00 Aspirin (Aspirin Chewable) 81 mg DAILY PO ; Start 07/18/21 at 12:00; Stop 07/19/21 at 07:22; Status DC Carbidopa/Levodopa (Sinemet 25/100) 2 tab TIDWMEALS PO Last administered on 07/20/21at 08:34; Start 07/18/21 at 12:00 Fludrocortisone Acetate (Florinef) 0.1 mg DAILY PO Last administered on 07/20/21at 08:34; Start 07/18/21 at 11:00 Multivitamins (Thera M Plus) 1 tab DAILY PO ; Start 07/18/21 at 11:00; Stop 07/19/21 at 07:22; Status DC Paroxetine HCl (Paxil) 20 mg DAILY PO Last administered on 07/20/21at 08:34; Start 07/18/21 at 11:00 Polyethylene Glycol (miraLAX PACKET) 17 gm DAILY PO Last administered on 07/20/21at 08:33; Start 07/18/21 at 11:00 Quetiapine Fumarate (SEROquel) 25 mg BID PO Last administered on 07/20/21at 08:34; Start 07/18/21 at 11:00 Senna/Docusate Sodium (Senna Plus) 1 tab DAILY PO ; Start 07/18/21 at 11:00; Stop 07/19/21 at 07:22; Status DC Thiamine Mononitrate (Vitamin B-1) 100 mg DAILY PO Last administered on 07/20/21at 08:33; Start 07/18/21 at 11:00 Tramadol HCl (Ultram) 50 mg PRN Q6HRS PRN PO MILD PAIN 1-3 Last administered on 07/19/21at 07:54; Start 07/18/21 at 11:00 Atorvastatin Calcium (Lipitor) 40 mg QHS PO Last administered on 07/19/21at 20:47; Start 07/18/21 at 21:00 Vitamin D (Vitamin D3) 2,000 unit DAILY PO Last administered on 07/20/21 08:34; Start 07/18/21 at 11:00 Clindamycin HCl (Cleocin) 300 mg TID PO Last administered on 07/20/21 08:33; Start 07/19/21 at 09:00 Heparin Sodium (Porcine) (Heparin Sodium) 5,000 unit Q8HRS SQ Last administered on 07/20/21at 06:35; Start 07/19/21 at 06:15 Lactobacillus Rhamnosus (Culturelle) 1 cap BID PO Last administered on 07/20/21 08:33; Start 07/19/21 at 12:00 Potassium Chloride (Klor-Con) 40 meq 1X ONCE PO Last administered on 07/19/21at 12:09; Start 07/19/21 at 11:15; Stop 07/19/21 at 17:30; Status DC Potassium Chloride (Klor-Con) 20 meq DAILYWBKFT PO Last administered on 07/20/21at 08:34; Start 07/20/21 at 08:00 Active Scripts Active Thera-M Tablet (Multivits,Ca,Minerals/Iron/Fa) 1 Each Tablet 1 Tab PO DAILY 30 Days Tramadol Hcl 50 Mg Tablet 50 Mg PO PRN Q6HRS PRN 7 Days Acetaminophen 325 Mg Tablet 650 Mg PO PRN Q4HRS PRN 14 Days Reported Calcium Carbonate 500 Mg Tablet 1 Tab PO PRN DAILY 30 Days Miralax (Polyethylene Glycol 3350) 17 Gm Powd.pack 1 Pkt PO DAILY Hydralazine Hcl 25 Mg Tablet 25 Mg PO PRN QID PRN Donepezil Hcl 23 Mg Tablet 20 Mg PO HS Torsemide 10 Mg Tablet 1 Tab PO DAILY 30 Days Senna-Docusate Sodium Tablet (Sennosides/Docusate Sodium) 1 Each Tablet 1 Tab PO DAILY 20 Days Paroxetine Hcl 20 Mg Tablet 1 Tab PO DAILY Midodrine Hcl 5 Mg Tablet 5 Mg PO TID Fludrocortisone Acetate 0.1 Mg Tablet 1 Tab PO DAILY Vitamin D3 (Cholecalciferol (Vitamin D3)) 1,250 Mcg Capsule 2,000 Mcg PO DAILY Aspirin 81 Mg Tab.chew 1 Tab PO DAILY Atorvastatin Calcium 80 Mg Tablet 40 Mg PO QHS Carbidopa-Levodopa 25-100 Tab (Carbidopa/Levodopa) 1 Each Tablet 2 Tab PO TIDWMEALS 30 Days Seroquel (Quetiapine Fumarate) 25 Mg Tablet 25 Mg PO BID Vitals/I & O Vital Sign - Last 24 Hours 07/19/21 07/19/21 07/19/21 07/19/21 10:36 11:00 15:00 19:00 Temp 98.2 98.2 98.1 98.2 98.2 98.1 Pulse 65 79 64 Resp 19 18 16 20 B/P (MAP) 103/37 (59) 100/39 (59) 106/33 (57) Pulse Ox 94 94 94 O2 Delivery Room Air Room Air Room Air Room Air 07/19/21 07/19/21 07/20/21 07/20/21 20:00 23:00 03:00 07:45 Temp 97.8 98.0 98.4 97.8 98.0 98.4 Pulse 63 61 60 Resp 20 20 18 B/P (MAP) 115/43 (67) 132/52 (78) 153/59 (90) Pulse Ox 91 90 90 O2 Delivery Room Air Room Air Room Air Room Air O2 Flow Rate 07/20/21 08:00 O2 Delivery Room Air O2 Flow Rate 10.0 Intake and Output 07/19/21 07/19/21 07/20/21 15:00 23:00 07:00 Intake Total 120 ml 120 ml 0 ml Output Total 20 ml Balance 100 ml 120 ml 0 ml Justicifation of Admission Dx: Justifications for Admission: Justification of Admission Dx: Yes CHF: Cardiac Arrhythmias KATHY TRNA MD Jul 20, 2021 10:03
--- NOTE | 2021-07-20 10:08 | PDOC ---
Provider Note Date of Service: DATE: 07/19/21 TIME: 1999 Provider Note Patient seen in postoperative evaluation. She is doing fairly well. Dressing is clean dry and intact. Vital signs are stable patient is afebrile. Left hip dressing is clean dry and intact. Neurocirculatory status is intact. ASSESSMENT & PLAN: Status post left hip incision and evacuation of seroma outside the joint space Cultures revealed findings concerning for secondary E. coli infection in the soft tissues. Infectious disease consultation is pending. We will await their input to help determine patient's disposition. Justifications for Admission Other Justification SYNCOPE BEAR BRAY DO Jul 20, 2021 10:08 am
[2021-07-20 11:15] VITALS: BP 139/59
[2021-07-20] MEDS ORDERED: diphenhydrAMINE HCL 25 MG CAPSULE PO PRN (11:30)
[2021-07-20] MEDS ORDERED: cefTRIAXone IV Push 2 GM VIAL. IVP ONE (12:00)
--- NOTE | 2021-07-20 13:01 | CONS ---
DATE OF CONSULTATION: 07/20/2021 REFERRING PHYSICIAN: Gregor Avila MD REASON FOR CONSULTATION: Left hip seroma infection, antibiotic management. HISTORY OF PRESENT ILLNESS: A 76-year-old female with past medical history of dementia, Parkinson's, hypertension, status post left hip arthroplasty on 04/29/2021, presented for left hip swelling and pain, which started a couple of days prior to admission. She was taken to OR on 07/18/2021. No deep pocketing noted. Operative cultures are positive for E. coli. The patient is currently on clindamycin. ID consultation has been requested for antibiotic management. Today, the patient denies any fevers, chills, nausea, vomiting, diarrhea or abdominal pain. Pain is under control. PAST MEDICAL HISTORY: Hypertension, syncope, dementia, osteoarthritis, Parkinson's, urinary incontinence, anxiety and depression. PAST SURGICAL HISTORY: Total left hip replacement on 04/29/2021, status post I and D on 07/10/2021. FAMILY HISTORY: As per HPI. SOCIAL HISTORY: Denies smoking, ETOH or illicit drug use. , lives with . CURRENT MEDICATIONS: Clindamycin. Other medications reviewed in medication list. ALLERGIES: PENICILLIN CAUSING HIVES, is not sure about the same, AMOXICILLIN. Not sure if the patient has had Keflex. REVIEW OF SYSTEMS: Limited due to dementia. PHYSICAL EXAMINATION: VITAL SIGNS: Temperature 98.1, pulse 67, respiratory rate 18, blood pressure 139/59, oxygen saturation 92% on room air. GENERAL: Alert, oriented x 3, pleasant female, lying in bed comfortably, in no acute distress. HEENT: Normocephalic, atraumatic. Anicteric. No thrush. NECK: Supple. No JVD, no thyromegaly. LUNGS: Clear bilaterally. No wheezing. HEART: S1, S2. No gallops or murmurs. ABDOMEN: Soft, nontender, nondistended, no rebound or guarding. EXTREMITIES: Left hip dressing intact, dry, not taken down. DERMATOLOGIC: Warm, dry, no generalized rash. NEUROLOGIC: Alert, awake, oriented to place and person. Moves all 4 extremities. PSYCHIATRIC: Calm and cooperative. LABORATORY DATA: WBC 7.6, hemoglobin 10.1, hematocrit 30.9, platelets 390. Sodium 140, potassium 3.4, chloride 104, bicarbonate 34, BUN 12, creatinine 0.9, glucose 77. Lactate 1.4. C-reactive protein 8.4. Procalcitonin less than 0.10. MICROBIOLOGY: Left hip Gram stain E. coli, pansensitive. AFB cultures negative. History of PENICILLIN, AMOXICILLIN, CLAVULANIC ACID allergy, possibly rash. The patient or does not recall if she has had any cephalosporins. IMPRESSION: 1. Status post left hip incision and evacuation of seroma outside the joint space, cultures positive for Escherichia coli. 2. History of left hip arthroplasty on 04/29/2021. 3. Parkinson's. 4. Anemia. 5. History of ALLERGIES TO PENICILLIN and AMOXICILLIN, CLAVULANIC ACID, possibly rash. The patient and not sure about the reaction as it was couple of years ago. Does not recall taking any cephalosporins. RECOMMENDATIONS: 1. We will start ceftriaxone low dose first. Discussed with pharmacy and RN. If the patient tolerates, then we will give total dose of 2 grams daily. 2. Monitor closely. 3. Hold discharge today. 4. If the patient tolerates cephalosporins, we will lay out a plan for antibiotics. 5. Continue local wound care as directed. 6. PT and OT as directed. 7. Monitor labs and cultures. 8. Continue supportive care. Discussed with nursing staff. Discussed with pharmacy. Thank you for consulting Infectious Disease to participate in this patient's care. If you have any questions, do not hesitate to contact me. RICK OQUENDO: Margie TID: [id number]
[2021-07-20 15:16] VITALS: BP 125/49
[2021-07-20 19:28] VITALS: BP 111/40
[2021-07-20] MEDS: ATORVASTATIN CALCIUM 40 MG TABLET. PO SCH (20:20)
[2021-07-20 23:17] VITALS: BP 137/74
[2021-07-21 03:16] VITALS: BP 138/79
[2021-07-21] MEDS: HEPARIN for SUB-Q USE 5,000 UNIT/ML VIAL. SQ SCH ×3 (05:18→22:23)
[2021-07-21 08:00] VITALS: BP 139/57
--- NOTE | 2021-07-21 08:23 | PDOC ---
Infectious Disease Note Subjective: Subjective Patient without complaints Postop pain is under control Tolerated ceftriaxone well Vital Signs: Vital Signs Vital Signs Date Time Temp Pulse Resp B/P (MAP) Pulse Ox O2 Delivery O2 Flow Rate FiO2 07/21/21 03:16 98.0 59 18 138/79 (98) 95 Room Air 98.0 07/20/21 08:00 10.0 Physical Exam: PHYSICAL EXAM GENERAL: Alert, oriented x 3, pleasant female, lying in bed comfortably, in no acute distress. HEENT: Normocephalic, atraumatic. Anicteric. No thrush. NECK: Supple. No JVD, no thyromegaly. LUNGS: Clear bilaterally. No wheezing. HEART: S1, S2. No gallops or murmurs. ABDOMEN: Soft, nontender, nondistended, no rebound or guarding. EXTREMITIES: Left hip dressing intact, dry, not taken down. DERMATOLOGIC: Warm, dry, no generalized rash. NEUROLOGIC: Alert, awake, oriented to place and person. Moves all 4 extremities. PSYCHIATRIC: Calm and cooperative. Medications: Inpatient Meds: Medications reviewed. Objective: Assessment: 1. Status post left hip incision and evacuation of seroma outside the joint space, cultures positive for Escherichia coli. 2. History of left hip arthroplasty on 04/29/2021. 3. Parkinson's. 4. Anemia. 5. History of ALLERGIES TO PENICILLIN and AMOXICILLIN, CLAVULANIC ACID, possibly rash. Tolerated ceftriaxone well Plan: Plan of Care Continue ceftriaxone 2 g IV daily patient tolerated well Continue local wound care as directed Plans are for transfer to rehab facility tomorrow per team Dose ceftriaxone before discharge tomorrow Hold off on PICC line placement If continues to improve will transition to p.o. antibiotics tomorrow when she is ready for discharge Discussed with nursing staff. FABY HAGEN MD Jul 21, 2021 08:23
[2021-07-21] MEDS: THIAMINE 100 MG TABLET. PO SCH (08:43)
[2021-07-21] MEDS: LACTOBACILLUS RHAMNOSUS GG 1 CAPSULE. PO SCH ×2 (08:43→22:21)
[2021-07-21] MEDS: CARBIDOPA/LEVODOPA 25/100MG TABLET PO SCH ×3 (08:43→17:15)
[2021-07-21] MEDS: POTASSIUM CHLORIDE 20 MEQ TABLET.ER. PO SCH (08:44)
[2021-07-21] MEDS: ASPIRIN 325 MG TABLET PO SCH (08:44)
[2021-07-21] MEDS: SENNOSIDES/DOCUSATE 8.6/50MG TABLET. PO SCH (08:44)
[2021-07-21] MEDS: FLUDROCORTISONE 0.1 MG TABLET PO SCH (08:44)
[2021-07-21] MEDS: FERROUS SULFATE 325 MG TABLET. PO SCH ×2 (08:45→17:15)
[2021-07-21] MEDS: PARoxetine 20 MG TABLET PO SCH (08:45)
[2021-07-21] MEDS: QUEtiapine 25 MG TABLET. PO SCH ×2 (08:45→22:08)
[2021-07-21] MEDS: MULTIVITAMIN with MINERAL TABLET. PO SCH (08:45)
[2021-07-21] MEDS: POLYETHYLENE GLYCOL 3350 17 GM PACKET. PO SCH (08:45)
[2021-07-21] MEDS: CHOLECALCIFEROL (VITAMIN D3) 1,000 UNIT TABLET PO SCH (08:46)
[2021-07-21 11:00] VITALS: BP 109/51
[2021-07-21] MEDS: cefTRIAXone IV Push 2 GM VIAL. IVP SCH (12:17)
--- NOTE | 2021-07-21 12:46 | PDOC ---
[employer] PROGRESS NOTE Date of Service DOS: DATE: 07/21/21 TIME: 12:40 Chief Complaint Chief Complaint L hip seroma L hip hemiarthroplasty Dementia Parkinson's Disease HTN Anxiety Depression Osteoarthritis Urinary incontinence History of Present Illness History of Present Illness 07/21/2021: Pt seen and examined. Discussed with RN. Chart reviewed. Post-op day 3. Wound dressing clear, dry, intact. A&O. Pt pleasant to speak with. Vitals/I&O Vitals/I&O: Vital Signs Date Time Temp Pulse Resp B/P (MAP) Pulse Ox O2 Delivery O2 Flow Rate FiO2 07/21/21 12:12 94 Room Air 07/21/21 11:00 98.1 76 16 109/51 (70) 98.1 07/20/21 08:00 10.0 I & O 07/20/21 07/20/21 07/21/21 15:00 23:00 07:00 Intake Total 120 ml Balance 120 ml Physical Exam Physical Exam: GENERAL: Alert, oriented x 3, pleasant female, lying in bed comfortably, in no acute distress. HEENT: Normocephalic, atraumatic. Anicteric. No thrush. NECK: Supple. No JVD, no thyromegaly. LUNGS: Clear bilaterally. No wheezing. HEART: S1, S2. No gallops or murmurs. ABDOMEN: Soft, nontender, nondistended, no rebound or guarding. EXTREMITIES: Left hip dressing intact, dry, not taken down. DERMATOLOGIC: Warm, dry, no generalized rash. NEUROLOGIC: Alert, awake, oriented to place and person. Moves all 4 extremities. PSYCHIATRIC: Calm and cooperative. General: Alert, Cooperative, No acute distress Lungs: Clear Abdomen: Normal bowel sounds, Soft, No tenderness, No hepatosplenomegaly, No masses Extremities: No clubbing, No cyanosis, No edema, Normal pulses, Other (left hip and leg swelling) Skin: No rashes, No breakdown, No significant lesion Assessment and Plan Assessmemt and Plan L hip seroma L hip hemiarthroplasty Dementia Parkinson's Disease HTN Anxiety Depression Osteoarthritis Urinary incontinence Plan: Wound care Appreciate subspecialty input (ID) PT OT Trend labs Cardiac monitoring DVT prophylaxis Full code Discharge disposition pending Comment Review of Relevant I have reviewed the following items brian (where applicable) has been applied. Medications: Current Medications Medications (Trade) Dose Ordered Sig/Kacie Route PRN Reason Start Time Stop Time Status Last Admin Dose Admin Ceftriaxone Sodium (Rocephin) 2 gm Q24H IVP 07/21/21 12:00 07/21/21 12:17 Justifications for Admission Other Justification SYNCOPE KHALIDA SAUNDERS III DO Jul 21, 2021 12:46
[2021-07-21 15:00] VITALS: BP 125/54
[2021-07-21 19:00] VITALS: BP 140/55
[2021-07-21] MEDS: ATORVASTATIN CALCIUM 40 MG TABLET. PO SCH (22:08)
[2021-07-21 22:47] VITALS: BP 124/49
[2021-07-22 03:00] VITALS: BP 134/58
--- NOTE | 2021-07-22 05:28 | PDOC ---
Provider Note Date of Service: DATE: 07/22/21 TIME: 05:28 Provider Note Patient seen and evaluated today. She is doing well. No complaints of pain. Awaiting final aerobic cultures. Review of systems is negative today except for that noted in the history EXAM: -------- Well-nourished well-developed patient General: No acute distress. Neurologic: Alert. Psychiatric: Cooperative. Hip dressing is clean dry and intact. No significant drainage. ASSESSMENT & PLAN: Status post incision drainage hip seroma testing positive for E. coli. Appreciate infectious disease input. Continue to work on plan awaiting final aerobic cultures for disposition with antibiotics. Orthopedically stable Justifications for Admission Other Justification SYNCOPE BEAR BRAY DO Jul 22, 2021 5:28 am
[2021-07-22] MEDS: HEPARIN for SUB-Q USE 5,000 UNIT/ML VIAL. SQ SCH ×3 (06:05→21:25)
[2021-07-22 07:00] VITALS: BP 105/63
[2021-07-22] MEDS: POLYETHYLENE GLYCOL 3350 17 GM PACKET. PO SCH (09:00)
--- NOTE | 2021-07-22 09:06 | PDOC ---
Infectious Disease Note Subjective: Subjective Patient without complaints Postop pain is under control Tolerated ceftriaxone well Vital Signs: Vital Signs Vital Signs Date Time Temp Pulse Resp B/P (MAP) Pulse Ox O2 Delivery O2 Flow Rate FiO2 07/22/21 07:56 Room Air 07/22/21 07:00 98.3 61 20 105/63 (77 92 98.3 Physical Exam: PHYSICAL EXAM GENERAL: Alert, oriented x 3, pleasant female, lying in bed comfortably, in no acute distress. HEENT: Normocephalic, atraumatic. Anicteric. No thrush. NECK: Supple. No JVD, no thyromegaly. LUNGS: Clear bilaterally. No wheezing. HEART: S1, S2. No gallops or murmurs. ABDOMEN: Soft, nontender, nondistended, no rebound or guarding. EXTREMITIES: Left hip dressing intact, dry, not taken down. DERMATOLOGIC: Warm, dry, no generalized rash. NEUROLOGIC: Alert, awake, oriented to place and person. Moves all 4 extremities. PSYCHIATRIC: Calm and cooperative. Medications: Inpatient Meds: Medications reviewed. Objective: Assessment: 1. Status post left hip incision and evacuation of seroma outside the joint space, cultures positive for Escherichia coli. 2. History of left hip arthroplasty on 04/29/2021. 3. Parkinson's. 4. Anemia. 5. History of ALLERGIES TO PENICILLIN and AMOXICILLIN, CLAVULANIC ACID, possibly rash. Tolerated ceftriaxone well Plan: Plan of Care Discussed with microbiology lab Intraoperative cultures are not finalized yet as anaerobic is still pending Continue ceftriaxone 2 g IV daily patient tolerated well Continue local wound care as directed Depending on further culture data may modify treatment Hold off on PICC line placement at this time Discussed with nursing staff. FABY HAGEN MD Jul 22, 2021 09:06
[2021-07-22] MEDS: THIAMINE 100 MG TABLET. PO SCH (09:15)
[2021-07-22] MEDS: PARoxetine 20 MG TABLET PO SCH (09:15)
[2021-07-22] MEDS: SENNOSIDES/DOCUSATE 8.6/50MG TABLET. PO SCH (09:15)
[2021-07-22] MEDS: CARBIDOPA/LEVODOPA 25/100MG TABLET PO SCH ×3 (09:15→17:37)
[2021-07-22] MEDS: CHOLECALCIFEROL (VITAMIN D3) 1,000 UNIT TABLET PO SCH (09:15)
[2021-07-22] MEDS: MULTIVITAMIN with MINERAL TABLET. PO SCH (09:15)
[2021-07-22] MEDS: LACTOBACILLUS RHAMNOSUS GG 1 CAPSULE. PO SCH ×2 (09:15→21:24)
[2021-07-22] MEDS: FERROUS SULFATE 325 MG TABLET. PO SCH ×2 (09:15→17:37)
[2021-07-22] MEDS: ASPIRIN 325 MG TABLET PO SCH (09:15)
[2021-07-22] MEDS: QUEtiapine 25 MG TABLET. PO SCH ×2 (09:15→21:24)
[2021-07-22] MEDS: FLUDROCORTISONE 0.1 MG TABLET PO SCH (09:15)
[2021-07-22] MEDS: POTASSIUM CHLORIDE 20 MEQ TABLET.ER. PO SCH (09:15)
--- NOTE | 2021-07-22 09:32 | PDOC ---
[employer] PROGRESS NOTE Date of Service DOS: DATE: 07/22/21 TIME: 09:30 Chief Complaint Chief Complaint L hip seroma L hip hemiarthroplasty Dementia Parkinson's Disease HTN Anxiety Depression Osteoarthritis Urinary incontinence History of Present Illness History of Present Illness 07/22/2021: Pt seen and examined. Chart reviewed. Discussed with RN. Post-op day 4. Wound dressing clear, dry, intact. Pt feeling well today, tolerating po intake. 07/21/2021: Pt seen and examined. Discussed with RN. Chart reviewed. Post-op day 3. Wound dressing clear, dry, intact. A&O. Pt pleasant to speak with. Vitals/I&O Vitals/I&O: Vital Signs Date Time Temp Pulse Resp B/P (MAP) Pulse Ox O2 Delivery O2 Flow Rate FiO2 07/22/21 07:56 Room Air 07/22/21 07:00 98.3 61 20 105/63 (77) 92 98.3 I & O 07/21/21 07/21/21 07/22/21 15:00 23:00 07:00 Intake Total 300 ml Balance 300 ml Physical Exam Physical Exam: GENERAL: Alert, oriented x 3, pleasant female, lying in bed comfortably, in no acute distress. HEENT: Normocephalic, atraumatic. Anicteric. No thrush. NECK: Supple. No JVD, no thyromegaly. LUNGS: Clear bilaterally. No wheezing. HEART: S1, S2. No gallops or murmurs. ABDOMEN: Soft, nontender, nondistended, no rebound or guarding. EXTREMITIES: Left hip dressing intact, dry, not taken down. DERMATOLOGIC: Warm, dry, no generalized rash. NEUROLOGIC: Alert, awake, oriented to place and person. Moves all 4 extremities. PSYCHIATRIC: Calm and cooperative. General: Alert, Cooperative, No acute distress Lungs: Clear Abdomen: Normal bowel sounds, Soft, No tenderness, No hepatosplenomegaly, No masses Extremities: No clubbing, No cyanosis, No edema, Normal pulses, Other (left hip and leg swelling) Skin: No rashes, No breakdown, No significant lesion Assessment and Plan Assessmemt and Plan L hip seroma L hip hemiarthroplasty Dementia Parkinson's Disease HTN Anxiety Depression Osteoarthritis Urinary incontinence Plan: Cardiac monitoring Appreciate subspecialist input (ID awaiting final culture) Continue Rocephin Encourage po intake DVT prophylaxis Full code Discharge disposition pending Comment Review of Relevant I have reviewed the following items brian (where applicable) has been applied. Medications: Current Medications Medications (Trade) Dose Ordered Sig/Kacie Route PRN Reason Start Time Stop Time Status Last Admin Dose Admin Ceftriaxone Sodium (Rocephin) 2 gm Q24H IVP 07/21/21 12:00 07/21/21 12:17 Justifications for Admission Other Justification SYNCOPE CASTLE,NIAL K III DO Jul 22, 2021 09:32
[2021-07-22 11:16] VITALS: BP 148/56
[2021-07-22] MEDS: cefTRIAXone IV Push 2 GM VIAL. IVP SCH (11:33)
[2021-07-22 14:49] VITALS: BP 132/42
[2021-07-22 19:00] VITALS: BP 136/49
[2021-07-22] MEDS: ATORVASTATIN CALCIUM 40 MG TABLET. PO SCH (21:24)
[2021-07-22 23:00] VITALS: BP 136/47
[2021-07-23 02:56] VITALS: BP 154/50
[2021-07-23] MEDS: HEPARIN for SUB-Q USE 5,000 UNIT/ML VIAL. SQ SCH ×3 (05:43→21:03)
--- NOTE | 2021-07-23 07:30 | PDOC ---
[employer] PROGRESS NOTE Date of Service DOS: DATE: 07/23/21 TIME: 07:24 Chief Complaint Chief Complaint L hip seroma L hip hemiarthroplasty Dementia Parkinson's Disease HTN Anxiety Depression Osteoarthritis Urinary incontinence History of Present Illness History of Present Illness 07/23/2021: Afebrile. S/P I&D left hip seroma, with E. coli positive wound cultures. Continue Rocephin 2 g IV daily, per ID. Continue local wound care. Awaiting final anaerobic cultures; hold off on PICC line at this time. Worked with PT, recommended SNU. 07/22/2021: Pt seen and examined. Chart reviewed. Discussed with RN. Post-op day 4. Wound dressing clear, dry, intact. Pt feeling well today, tolerating po intake. 07/21/2021: Pt seen and examined. Discussed with RN. Chart reviewed. Post-op day 3. Wound dressing clear, dry, intact. A&O. Pt pleasant to speak with. Vitals/I&O Vitals/I&O: Vital Signs Date Time Temp Pulse Resp B/P (MAP) Pulse Ox O2 Delivery O2 Flow Rate FiO2 07/23/21 02:56 98.0 67 18 154/50 (84) 93 Room Air 98.0 I & O 07/22/21 07/22/21 07/23/21 15:00 23:00 07:00 Intake Total 300 ml 200 ml Balance 300 ml 200 ml Physical Exam Physical Exam: GENERAL: Alert, oriented x 3, pleasant female, lying in bed comfortably, in no acute distress. HEENT: Normocephalic, atraumatic. Anicteric. No thrush. NECK: Supple. No JVD, no thyromegaly. LUNGS: Clear bilaterally. No wheezing. HEART: S1, S2. No gallops or murmurs. ABDOMEN: Soft, nontender, nondistended, no rebound or guarding. EXTREMITIES: Left hip dressing intact, dry, not taken down. DERMATOLOGIC: Warm, dry, no generalized rash. NEUROLOGIC: Alert, awake, oriented to place and person. Moves all 4 extremities. PSYCHIATRIC: Calm and cooperative. General: Alert, Cooperative, No acute distress Lungs: Clear Abdomen: Normal bowel sounds, Soft, No tenderness, No hepatosplenomegaly, No masses Extremities: No clubbing, No cyanosis, No edema, Normal pulses, Other (left hip and leg swelling) Skin: No rashes, No breakdown, No significant lesion Comment Review of Relevant I have reviewed the following items brian (where applicable) has been applied. Justifications for Admission Other Justification SYNCOPE RICH REBOLLEDO MD Jul 23, 2021 07:30
[2021-07-23 07:35] VITALS: BP 150/63
[2021-07-23] MEDS: ASPIRIN 325 MG TABLET PO SCH (08:58)
[2021-07-23] MEDS: POLYETHYLENE GLYCOL 3350 17 GM PACKET. PO SCH (08:58)
[2021-07-23] MEDS: POTASSIUM CHLORIDE 20 MEQ TABLET.ER. PO SCH (08:59)
[2021-07-23] MEDS: LACTOBACILLUS RHAMNOSUS GG 1 CAPSULE. PO SCH ×2 (08:59→21:00)
[2021-07-23] MEDS: CARBIDOPA/LEVODOPA 25/100MG TABLET PO SCH ×3 (08:59→16:36)
[2021-07-23] MEDS: FLUDROCORTISONE 0.1 MG TABLET PO SCH (08:59)
[2021-07-23] MEDS: QUEtiapine 25 MG TABLET. PO SCH ×2 (08:59→21:00)
[2021-07-23] MEDS: FERROUS SULFATE 325 MG TABLET. PO SCH ×2 (08:59→16:36)
[2021-07-23] MEDS: CHOLECALCIFEROL (VITAMIN D3) 1,000 UNIT TABLET PO SCH (09:01)
[2021-07-23] MEDS: MULTIVITAMIN with MINERAL TABLET. PO SCH (09:01)
[2021-07-23] MEDS: SENNOSIDES/DOCUSATE 8.6/50MG TABLET. PO SCH (09:01)
[2021-07-23] MEDS: PARoxetine 20 MG TABLET PO SCH (09:01)
[2021-07-23] MEDS: THIAMINE 100 MG TABLET. PO SCH (09:01)
--- NOTE | 2021-07-23 09:16 | PDOC ---
Infectious Disease Note Subjective: Subjective Patient without complaints Vital Signs: Vital Signs Vital Signs Date Time Temp Pulse Resp B/P (MAP) Pulse Ox O2 Delivery O2 Flow Rate FiO2 07/23/21 07:41 Room Air 07/23/21 07:35 98.9 60 16 150/63 (92) 94 98.9 Physical Exam: PHYSICAL EXAM GENERAL: Alert, oriented x 3, pleasant female, lying in bed comfortably, in no acute distress. HEENT: Normocephalic, atraumatic. Anicteric. No thrush. NECK: Supple. No JVD, no thyromegaly. LUNGS: Clear bilaterally. No wheezing. HEART: S1, S2. No gallops or murmurs. ABDOMEN: Soft, nontender, nondistended, no rebound or guarding. EXTREMITIES: Left hip dressing intact, dry, not taken down. DERMATOLOGIC: Warm, dry, no generalized rash. NEUROLOGIC: Alert, awake, oriented to place and person. Moves all 4 extremities. PSYCHIATRIC: Calm and cooperative. Medications: Inpatient Meds: Medications reviewed. Objective: Assessment: 1. Status post left hip incision and evacuation of seroma outside the joint space, cultures positive for Escherichia coli. 2. History of left hip arthroplasty on 04/29/2021. 3. Parkinson's. 4. Anemia. 5. History of ALLERGIES TO PENICILLIN and AMOXICILLIN, CLAVULANIC ACID, possibly rash. Tolerated ceftriaxone well Plan: Plan of Care Intraoperative cultures are not finalized yet as anaerobic is still pending Continue ceftriaxone 2 g IV daily Hold off on PICC line placement at this time FABY HAGEN MD Jul 23, 2021 09:16
[2021-07-23 11:00] VITALS: BP 136/55
[2021-07-23] MEDS: cefTRIAXone IV Push 2 GM VIAL. IVP SCH (12:15)
[2021-07-23 15:00] VITALS: BP 107/51
[2021-07-23 19:00] VITALS: BP 119/53
[2021-07-23] MEDS: ATORVASTATIN CALCIUM 40 MG TABLET. PO SCH (21:00)
[2021-07-23 23:00] VITALS: BP 126/49
[2021-07-24 03:00] VITALS: BP 142/52
[2021-07-24] MEDS: HEPARIN for SUB-Q USE 5,000 UNIT/ML VIAL. SQ SCH (06:24)
[2021-07-24 07:15] VITALS: BP 149/56
[2021-07-24 07:30] LABS: BASO # 0.1 x10^3/uL (0.0-0.2); BASO % 1 % (0-3); EOS # 0.2 x10^3/uL (0.0-0.7); EOS % 4 % (0-3); HEMATOCRIT 32.8 % (36.0-47.0); HEMOGLOBIN 10.7 g/dL (12.0-15.5); LYMPH # 1.5 x10^3/uL (1.0-4.8); LYMPH % 24 % (24-48); MEAN CORPUSCULAR HEMOGLOBIN 31 pg (25-35); MEAN CORPUSCULAR HGB CONC 33 g/dL (31-37); MEAN CORPUSCULAR VOLUME 94 fL (79-100); MONO # 0.5 x10^3/uL (0.0-1.1); MONO % 8 % (0-9); NEUT # 4.1 x10^3/uL (1.8-7.7); NEUT % 64 % (31-73); PLATELET COUNT 415 x10^3/uL (140-400); RED BLOOD COUNT 3.49 x10^6/uL (3.50-5.40); RED CELL DISTRIBUTION WIDTH 15.4 % (11.5-14.5); WHITE BLOOD COUNT 6.4 x10^3/uL (4.0-11.0)
[2021-07-24 07:47] LABS: CALCIUM 8.4 mg/dL (8.5-10.1); CREATININE 0.9 mg/dL (0.6-1.0); GFR 60.6; POTASSIUM 4.2 mmol/L (3.5-5.1)
--- NOTE | 2021-07-24 08:22 | PDOC ---
Infectious Disease Note Subjective: Subjective Patient without complaints Vital Signs: Vital Signs Vital Signs Date Time Temp Pulse Resp B/P (MAP) Pulse Ox O2 Delivery O2 Flow Rate FiO2 07/24/21 03:00 97.3 52 18 142/52 (82) 92 Room Air 97.3 Physical Exam: PHYSICAL EXAM GENERAL: Alert, oriented x 3, pleasant female, lying in bed comfortably, in no acute distress. HEENT: Normocephalic, atraumatic. Anicteric. No thrush. NECK: Supple. No JVD, no thyromegaly. LUNGS: Clear bilaterally. No wheezing. HEART: S1, S2. No gallops or murmurs. ABDOMEN: Soft, nontender, nondistended, no rebound or guarding. EXTREMITIES: Left hip dressing intact, dry, not taken down. DERMATOLOGIC: Warm, dry, no generalized rash. NEUROLOGIC: Alert, awake, oriented to place and person. Moves all 4 extremities. PSYCHIATRIC: Calm and cooperative. Medications: Inpatient Meds: Medications reviewed. Labs: Lab Laboratory Tests Test 07/24/21 06:40 White Blood Count 6.4 x10^3/uL (4.0-11.0) Red Blood Count 3.49 x10^6/uL (3.50-5.40) Hemoglobin 10.7 g/dL (12.0-15.5) Hematocrit 32.8 % (36.0-47.0) Mean Corpuscular Volume 94 fL (79-100) Mean Corpuscular Hemoglobin 31 pg (25-35) Mean Corpuscular Hemoglobin Concent 33 g/dL (31-37) Red Cell Distribution Width 15.4 % (11.5-14.5) Platelet Count 415 x10^3/uL (140-400) Neutrophils (%) (Auto) 64 % (31-73) Lymphocytes (%) (Auto) 24 % (24-48) Monocytes (%) (Auto) 8 % (0-9) Eosinophils (%) (Auto) 4 % (0-3) Basophils (%) (Auto) 1 % (0-3) Neutrophils # (Auto) 4.1 x10^3/uL (1.8-7.7) Lymphocytes # (Auto) 1.5 x10^3/uL (1.0-4.8) Monocytes # (Auto) 0.5 x10^3/uL (0.0-1.1) Eosinophils # (Auto) 0.2 x10^3/uL (0.0-0.7) Basophils # (Auto) 0.1 x10^3/uL (0.0-0.2) Sodium Level 138 mmol/L (136-145) Potassium Level 4.2 mmol/L (3.5-5.1) Chloride Level 102 mmol/L (98-107) Carbon Dioxide Level 30 mmol/L (21-32) Anion Gap 6 (6-14) Blood Urea Nitrogen 12 mg/dL (7-20) Creatinine 0.9 mg/dL (0.6-1.0) Estimated GFR (Cockcroft-Gault) 60.6 Glucose Level 81 mg/dL (70-99) Calcium Level 8.4 mg/dL (8.5-10.1) Micro RUN DATE: 07/23/21 [facility] LAB *LIVE* PAGE 1 RUN TIME: 946 Specimen Inquiry PATIENT: JACKI TRENT ACCT: [id number] LOC: [address] [place] [address] U: [id number] AGE/SX: 76/F ROOM: 434 RE07/20/[address]: BEAR BRAY : 1945 BED: 1 DIS: STATUS: ADM IN TLOC: SPEC #: [id number] DANA: 07/18/21 STATUS: COMP REQ #: [id number] RECD: 07/18/21 [facility] DR: BEAR BRAY DO SOURCE: HIP ENTR: 07/18/[address] [facility] [address]: BEAR MORRISSEY MD SPDESC: CHIRAG STANLEY MD ORDERED: ANAER/AEROB/GS COMMENTS: SEROMA LEFT HIP ------ ------ Procedure Result GRAM STAIN Final Final NO ORGANISMS SEEN. RBC:MANY SQUAMOUS EPI CELL:NONE SEEN PMN (WBCs):NONE SEEN Unless otherwise specified, Testing Performed by: [address] [place] [address] For Inquires, the Physician may contact the Microbiology department at [phone] ANAEROBIC-AEROBIC CULTURE Final Final RARE GRAM NEGATIVE RODS on 07/19/21 at 0853 FINAL ID= [ESCHERICHIA COLI] NO ANAEROBIC ORGANISMS ISOLATED on 07/23/21 at 0942 ESCHERICHIA COLI ANTIMICROBIAL SUSCEPTIBILITY Final Comment NEG VERA 56 ESCHERICHIA COLI ANTIBIOTIC RESULT INTERPRETATION AMPICILLIN/SULBACTAM <=4/2 S AMIKACIN <=16 S AMPICILLIN <=8 S AMOXICILLIN/K CLAVULANATE <=8/4 S AZTREONAM <=4 S CEFTRIAXONE <=1 S CEFTAZIDIME <=1 S CEFOTAXIME <=2 S CEFOXITIN <=8 S CEFAZOLIN <=2 S CIPROFLOXACIN <=0.25 S CEFEPIME <=2 S CEFUROXIME <=4 S CEFTAZIDIME/AVIBACTAM <=4 S RUN DATE: 07/23/21 [facility] *LIVE* PAGE 2 RUN TIME: 0947 Specimen Inquiry SPEC: [id number] PATIENT: JACKI TRENT [id number] (Continued) Procedure Result CONTINUED ON NEXT PAGE RUN DATE: 07/23/21 [facility] *LIVE* PAGE 3 RUN TIME: 0947 Specimen Inquiry SPEC: [id number] PATIENT: JACKI TRENT [id number] (Continued) Procedure Result ANTIMICROBIAL SUSCEPTIBILITY Final (continued) ERTAPENEM <=0.5 S GENTAMICIN <=2 S LEVOFLOXACIN <=0.5 S MEROPENEM <=1 S PIPERACILLIN/TAZOBACTAM <=8 S TRIMETHOPRIM/SULFAMETHOXAZOLE <=0.5/9.5 S TETRACYCLINE <=4 S TOBRAMYCIN <=2 S Unless otherwise specified, Testing Performed by: [address] [address] For Inquires, the Physician may contact the Microbiology department at [phone] Objective: Assessment: 1. Status post left hip incision and evacuation of seroma outside the joint space, cultures positive for Escherichia coli. 2. History of left hip arthroplasty on 04/29/2021. 3. Parkinson's. 4. Anemia. 5. History of ALLERGIES TO PENICILLIN and AMOXICILLIN, CLAVULANIC ACID, possibly rash. Tolerated ceftriaxone well Plan: Plan of Care Patient is ready for transfer today to rehab facility Do not place PICC line Dose ceftriaxone before discharge today Start cefdinir starting tomorrow 300 mg p.o. twice daily for 7 days Wound care as directed PT and OT as directed FABY HAGEN MD Jul 24, 2021 08:22
[2021-07-24] MEDS: ASPIRIN 325 MG TABLET PO SCH (08:39)
[2021-07-24] MEDS: LACTOBACILLUS RHAMNOSUS GG 1 CAPSULE. PO SCH (08:39)
[2021-07-24] MEDS: CHOLECALCIFEROL (VITAMIN D3) 1,000 UNIT TABLET PO SCH (08:39)
[2021-07-24] MEDS: POLYETHYLENE GLYCOL 3350 17 GM PACKET. PO SCH (08:39)
[2021-07-24] MEDS: SENNOSIDES/DOCUSATE 8.6/50MG TABLET. PO SCH (08:39)
[2021-07-24] MEDS: THIAMINE 100 MG TABLET. PO SCH (08:40)
[2021-07-24] MEDS: POTASSIUM CHLORIDE 20 MEQ TABLET.ER. PO SCH (08:40)
[2021-07-24] MEDS: FLUDROCORTISONE 0.1 MG TABLET PO SCH (08:40)
[2021-07-24] MEDS: CARBIDOPA/LEVODOPA 25/100MG TABLET PO SCH ×2 (08:40→12:41)
[2021-07-24] MEDS: PARoxetine 20 MG TABLET PO SCH (08:40)
[2021-07-24] MEDS: MULTIVITAMIN with MINERAL TABLET. PO SCH (08:40)
[2021-07-24] MEDS: QUEtiapine 25 MG TABLET. PO SCH (08:40)
[2021-07-24] MEDS: FERROUS SULFATE 325 MG TABLET. PO SCH (08:40)
[2021-07-24 11:11] VITALS: BP 165/62
--- NOTE | 2021-07-24 11:46 | SNU/HH DC ---
DISCHARGE ORDERS DISCHARGE INFORMATION: DISCHARGE DATE: Jul 24, 2021 CONDITION ON DISCHARGE: Stable CODE STATUS: Code Status: Full NURSING HOME: SNF STAY <30 DAYS: Yes POST DISCHARGE ORDERS: ACTIVITY ORDERS: Activity as tolerated, Walk in house, Other, see below WEIGHT BEARING STATUS: No restrictions, As tolerated BATHING ORDERS: Shower-keep dressing dry, No Tub Bath until see Dr. GUTIERREZ AFTER DISCHARGE: Cardiac WOUND/INCISION CARE: Ice to area for comfort, Do not change dressing CHECKS AFTER DISCHARGE: CHECKS AFTER DISCHARGE: Check blood press - daily FOLLOW-UP: PHYSICIAN FOLLOW-UP: PCP within 2 weeks of discharge ADDITIONAL FOLLOW-UP: Orthopedic surgery as needed LAB ORDERS FOR FOLLOW-UP: CBC, CMP TREATMENT/EQUIPMENT ORDERS: ADAPTIVE EQUIPMENT NEEDED: None Physical Therapy For: Evalulation/Treatment Occupational Therapy For: Evaluation/Treatment Speech Language Pathology For: Evaluation/Treatment DISCHARGE MEDICATIONS: Home Meds Active Scripts Multivits,Ca,Minerals/Iron/Fa (THERA-M TABLET) 1 Each Tablet, 1 TAB PO DAILY for . for 30 Days, #30 TAB Prov:CASTLE,NIAL K III DO 05/01/21 Tramadol Hcl (TRAMADOL HCL) 50 Mg Tablet, 50 MG PO PRN Q6HRS PRN for MILD PAIN 1-3 for 7 Days, #30 TAB Prov:CASTLE,NIAL K III DO 05/01/21 Acetaminophen (ACETAMINOPHEN) 325 Mg Tablet, 650 MG PO PRN Q4HRS PRN for TEMP OVER 100.4F OR MILD PAIN for 14 Days, #60 TAB Prov:KATHY TRAN MD 02/03/21 Reported Medications Calcium Carbonate (CALCIUM CARBONATE) 500 Mg Tablet, 1 TAB PO PRN DAILY for indigestion for 30 Days, TAB 0 Refills 07/18/21 Polyethylene Glycol 3350 (MIRALAX) 17 Gm Powd.pack, 1 PKT PO DAILY for CONSTIPATION , PKT 07/17/21 Hydralazine Hcl (HYDRALAZINE HCL) 25 Mg Tablet, 25 MG PO PRN QID PRN for HYPERTENSION, TAB 07/17/21 Donepezil Hcl (DONEPEZIL HCL) 23 Mg Tablet, 20 MG PO HS for DEMENTIA , TAB 07/17/21 Torsemide (TORSEMIDE) 10 Mg Tablet, 1 TAB PO DAILY for EDEMA for 30 Days, #30 TA B 0 Refills 04/27/21 Sennosides/Docusate Sodium (Senna-Docusate Sodium Tablet) 1 Each Tablet, 1 TAB PO DAILY for CONSTAPATION for 20 Days, #20 TAB 0 Refills 04/27/21 Paroxetine Hcl (PAROXETINE HCL) 20 Mg Tablet, 1 TAB PO DAILY for DEPRESSION, #30 TAB 5 Refills 04/27/21 Fludrocortisone Acetate (FLUDROCORTISONE ACETATE) 0.1 Mg Tablet, 1 TAB PO DAILY for HYPOTENTION, #90 TAB 1 Refill 04/27/21 Cholecalciferol (Vitamin D3) (Vitamin D3) 1,250 Mcg Capsule, 2000 MCG PO DAILY for VITAMIN D, CAP 04/27/21 Aspirin (ASPIRIN) 81 Mg Tab.chew, 1 TAB PO DAILY for unknown , #30 TAB 3 Refills 04/27/21 Atorvastatin Calcium (Atorvastatin Calcium) 80 Mg Tablet, 40 MG PO QHS for FOR HIGH CHOLESTEROL, TAB 02/01/21 Carbidopa/Levodopa (CARBIDOPA-LEVODOPA 25-100 TAB) 1 Each Tablet, 2 TAB PO TIDWMEALS for Parkinsons for 30 Days, #180 TAB 0 Refills 02/01/21 Quetiapine Fumarate (SEROQUEL) 25 Mg Tablet, 25 MG PO BID for depression, TAB 02/01/21 Discontinued Reported Medications Midodrine Hcl (MIDODRINE HCL) 5 Mg Tablet, 5 MG PO TID for HYPOTENTION , TAB 04/27/21 Donepezil Hcl (DONEPEZIL HCL) 10 Mg Tablet, 1 TAB PO QHS for dementia, #90 TAB 1 Refill 02/01/21 ANTOINETTE TAYLOR MD Jul 24, 2021 11:46
[2021-07-24] MEDS: cefTRIAXone IV Push 2 GM VIAL. IVP SCH (12:41)
[2021-07-24 15:05] VITALS: BP 112/62
--- NOTE | 2021-07-24 15:33 | NUR ---
Pt discharged to [facility]. Called and gave report to Regi. IV removed. Only belonging was a robe which was packed in bag. Pt assisted to personal wheelchair and was taken by SN and to transportation at main entrance.
--- NOTE | 2021-07-24 17:48 | PDOC3 ---
[facility]-Discharge Summary Date of Admission: Date of Admission: Jul 18, 2021 Date of Discharge: Date of Discharge: Jul 24, 2021 Discharge Diagnosis: Discharge Diagnosis: L hip seroma L hip hemiarthroplasty Dementia Parkinson's Disease HTN Anxiety Depression Osteoarthritis Urinary incontinence Consults: Consults: ID Plan of Care Patient is ready for transfer today to rehab facility Do not place PICC line Dose ceftriaxone before discharge today Start cefdinir starting tomorrow 300 mg p.o. twice daily for 7 days Wound care as directed PT and OT as directed Hospital Course: Hospital Course: 76-year-old female with past medical history dementia, Parkinson's, HTN and recent left hip fracture who presents as an admission for left hip swelling and pain with seroma noted on left hip. She went to OR for I&D 07/18/2021 with operative cultures taken. No deep pocketing noted. She is s/p left hip hemiarthroplasty on 04/29/2021 and was discharged in stable condition for rehabilitation. No complaints of pain. Discussed working with PT. I believe she will require acute rehab again. 07/23/2021: Afebrile. S/P I&D left hip seroma, with E. coli positive wound cultures. Continue Rocephin 2 g IV daily, per ID. Continue local wound care. Awaiting final anaerobic cultures; hold off on PICC line at this time. Worked with PT, recommended SNU. 07/22/2021: Pt seen and examined. Chart reviewed. Discussed with RN. Post-op day 4. Wound dressing clear, dry, intact. Pt feeling well today, tolerating po intake. 07/21/2021: Pt seen and examined. Discussed with RN. Chart reviewed. Post-op day 3. Wound dressing clear, dry, intact. A&O. Pt pleasant to speak with. Disposition: Disposition/Orders: D/C to Another Facility Activity: Activity: Resume previous activity Diet: Diet: Cardiac Medications: Home Meds Active Scripts Multivits,Ca,Minerals/Iron/Fa (THERA-M TABLET) 1 Each Tablet, 1 TAB PO DAILY for . for 30 Days, #30 TAB Prov:CASTLE,NIAL K III DO 05/01/21 Tramadol Hcl (TRAMADOL HCL) 50 Mg Tablet, 50 MG PO PRN Q6HRS PRN for MILD PAIN 1-3 for 7 Days, #30 TAB Prov:KHALIDA SAUNDERS K III DO 05/01/21 Acetaminophen (ACETAMINOPHEN) 325 Mg Tablet, 650 MG PO PRN Q4HRS PRN for TEMP OV ER 100.4F OR MILD PAIN for 14 Days, #60 TAB Prov:KATHY TRAN MD 02/03/21 Reported Medications Calcium Carbonate (CALCIUM CARBONATE) 500 Mg Tablet, 1 TAB PO PRN DAILY for indigestion for 30 Days, TAB 0 Refills 07/18/21 Polyethylene Glycol 3350 (MIRALAX) 17 Gm Powd.pack, 1 PKT PO DAILY for CONSTIPATION , PKT 07/17/21 Hydralazine Hcl (HYDRALAZINE HCL) 25 Mg Tablet, 25 MG PO PRN QID PRN for HYPERTENSION, TAB 07/17/21 Donepezil Hcl (DONEPEZIL HCL) 23 Mg Tablet, 20 MG PO HS for DEMENTIA , TAB 07/17/21 Torsemide (TORSEMIDE) 10 Mg Tablet, 1 TAB PO DAILY for EDEMA for 30 Days, #30 TAB 0 Refills 04/27/21 Sennosides/Docusate Sodium (Senna-Docusate Sodium Tablet) 1 Each Tablet, 1 TAB PO DAILY for CONSTAPATION for 20 Days, #20 TAB 0 Refills 04/27/21 Paroxetine Hcl (PAROXETINE HCL) 20 Mg Tablet, 1 TAB PO DAILY for DEPRESSION, #30 TAB 5 Refills 04/27/21 Fludrocortisone Acetate (FLUDROCORTISONE ACETATE) 0.1 Mg Tablet, 1 TAB PO DAILY for HYPOTENTION, #90 TAB 1 Refill 04/27/21 Cholecalciferol (Vitamin D3) (Vitamin D3) 1,250 Mcg Capsule, 2000 MCG PO DAILY for VITAMIN D, CAP 04/27/21 Aspirin (ASPIRIN) 81 Mg Tab.chew, 1 TAB PO DAILY for unknown , #30 TAB 3 Refills 04/27/21 Atorvastatin Calcium (Atorvastatin Calcium) 80 Mg Tablet, 40 MG PO QHS for FOR HIGH CHOLESTEROL, TAB 02/01/21 Carbidopa/Levodopa (CARBIDOPA-LEVODOPA 25-100 TAB) 1 Each Tablet, 2 TAB PO TIDWMEALS for Parkinsons for 30 Days, #180 TAB 0 Refills 02/01/21 Quetiapine Fumarate (SEROQUEL) 25 Mg Tablet, 25 MG PO BID for depression, TAB 02/01/21 Discontinued Reported Medications Midodrine Hcl (MIDODRINE HCL) 5 Mg Tablet, 5 MG PO TID for HYPOTENTION , TAB 04/27/21 Donepezil Hcl (DONEPEZIL HCL) 10 Mg Tablet, 1 TAB PO QHS for dementia, #90 TAB 1 Refill 02/01/21 Scheduled Aspirin (Aspirin), 1 TAB PO DAILY, (Reported) Atorvastatin Calcium (Atorvastatin Calcium), 40 MG PO QHS, (Reported) Calcium Carbonate (Calcium Carbonate), 1 TAB PO PRN DAILY, (Reported) Carbidopa/Levodopa (Carbidopa-Levodopa 25-100 Tab), 2 TAB PO TIDWMEALS, (Reported) Cholecalciferol (Vitamin D3) (Vitamin D3), 2,000 MCG PO DAILY, (Reported) Donepezil Hcl (Donepezil Hcl), 20 MG PO HS, (Reported) Fludrocortisone Acetate (Fludrocortisone Acetate), 1 TAB PO DAILY, (Reported) Multivits,Ca,Minerals/Iron/Fa (Thera-M Tablet), 1 TAB PO DAILY Paroxetine Hcl (Paroxetine Hcl), 1 TAB PO DAILY, (Reported) Polyethylene Glycol 3350 (Miralax), 1 PKT PO DAILY, (Reported) Quetiapine Fumarate (Seroquel), 25 MG PO BID, (Reported) Sennosides/Docusate Sodium (Senna-Docusate Sodium Tablet), 1 TAB PO DAILY, (Reported) Torsemide (Torsemide), 1 TAB PO DAILY, (Reported) Scheduled PRN Acetaminophen (Acetaminophen), 650 MG PO PRN Q4HRS PRN for TEMP OVER 100.4F OR MILD PAIN Hydralazine Hcl (Hydralazine Hcl), 25 MG PO PRN QID PRN for HYPERTENSION, (Reported) Tramadol Hcl (Tramadol Hcl), 50 MG PO PRN Q6HRS PRN for MILD PAIN 1-3 Discontinued Medications Donepezil Hcl (Donepezil Hcl), 1 TAB PO QHS, (Reported) Discontinued Reason: Prescription changed Midodrine Hcl (Midodrine Hcl), 5 MG PO TID, (Reported) Total Time: Total Time: Total time spent was 37 minutes in preparing scripts, discharge planning with SW and RN, and preparing this discharge summary. Patient seen and examined on day of discharge. Justicifation of Admission Dx: Justifications for Admission: Justification of Admission Dx: Yes CHF: Cardiac Arrhythmias ANTOINETTE TAYLOR MD Jul 24, 2021 17:48
== END 2021-07-24 15:35 | DRG 907 ==
LOC: SURG 06:06 → 4 NORTH 09:20 → OBSVTOIN 07-20 13:01
PROVIDERS: ADMIT Orthopaedic Surgery; ATTEND Orthopaedic Surgery
PROC: 0JDM0ZZ Extraction of Left Upper Leg Subcutaneous Tissue and Fascia, Open Approach (ICD-10-PCS; principal; 2021-07-20)
PROC: 0J9M0ZZ Drainage of Left Upper Leg Subcutaneous Tissue and Fascia, Open Approach (ICD-10-PCS; 2021-07-20)
DX: M96.842 Postprocedural seroma of a musculoskeletal structure following a musculoskeletal system procedure (principal); E43 Unspecified severe protein-calorie malnutrition; D64.9 Anemia, unspecified; F02.80 Dementia in other diseases classified elsewhere, unspecified severity, without behavioral disturbance, psychotic disturbance, mood disturbance, and anxiety; F32.A Depression, unspecified; F41.9 Anxiety disorder, unspecified; I10 Essential (primary) hypertension; K59.00 Constipation, unspecified; M19.90 Unspecified osteoarthritis, unspecified site; R32 Unspecified urinary incontinence; Z79.82 Long term (current) use of aspirin; Z79.899 Other long term (current) drug therapy; Z82.49 Family history of ischemic heart disease and other diseases of the circulatory system; Z88.0 Allergy status to penicillin; Z96.642 Presence of left artificial hip joint; F32.9 Major depressive disorder, single episode, unspecified; G20 Parkinson's disease; B96.20 Unspecified Escherichia coli [E. coli] as the cause of diseases classified elsewhere
CPT/HCPCS: 36415; 80048; 80053; 83605; 84145; 85014; 85018; 85025; 86140; 87015; 87071; 87075; 87077; 87102; 87116; 87186; A4452; A4930; A6223; A6402; G0378; G0379; J0696; J1100; J1644; J2405; J2704; J3010; J3490; U0003; U0005; 97110-GO; 97110-GP; 97116-GP; 97530-GO; 97530-GP; 97535-GO